=== PATIENT | female | born 1965 | race Caucasian/White ===

== ENCOUNTER → 2018-07-05 09:27 | Outpatient (CLI) | payer MEDICARE, SELFPAY ==
--- NOTE | 2018-07-05 09:33 | RAD_ITS ---
CLINICAL HISTORY: Female, 53 years old. PROCEDURE: Double contrast upper GI. CONSENT: Years SEDATION: No FLUOROSCOPY TIME (if supplied): (1:38) minutes/seconds TECHNIQUE: (All elements of maximal sterile barrier technique followed, including US elements as applicable) Patient swallowed barium without difficulty, no evidence for hiatal hernia, obstruction, there was mild gastroesophageal reflux. The stomach was then filled to its normal contour without mucosal abnormality. The duodenal bulb, sweep and proximal small bowel are within normal limits. RAD/Upper GI Series Only IMPRESSION: Negative upper double contrast upper GI except for mild gastroesophageal : Electronically Signed: Alexander Freitas, at 15:14 EST Tel , Service support ,
== END ==
PROVIDERS: Family Provider Internal Medicine; PCP Internal Medicine; Referring Provider Nurse Practitioner Adult Health; Visit Provider Nurse Practitioner Adult Health
DX: R13.10 Dysphagia, unspecified (principal); K22.4 Dyskinesia of esophagus; K21.0 Gastro-esophageal reflux disease with esophagitis
CPT/HCPCS: 74246

== ENCOUNTER → 2020-05-01 | Outpatient (CLI) | payer MEDICARE, SELFPAY | END | disposition home or self-care (01) | LOC: LABSPEC 15:44 | PROVIDERS: PCP Internal Medicine; Referring Provider Internal Medicine; Visit Provider Internal Medicine | DX: R50.9 Fever, unspecified (principal) | CPT/HCPCS: 87635; C9803; U0003 ==

== ENCOUNTER 2021-11-08 11:25 | Day surgery (SDC) | payer MEDICARE, MEDICAID, SELFPAY ==
[2021-11-08] MEDS: Lactated Ringers 1,000 ML 15 ML IV (11:40)
[2021-11-08 12:06] VITALS: BP 152/72; PULSE 74; RESP 18; TEMP 36.4; O2SAT 94; BMI 33.6
--- NOTE | 2021-11-08 12:30 | IMM_PTH ---
PATIENT: RACHEAL ANN LOC: EN U#:[id number] AGE/SX: 56/F ROOM: RE11/08/[address]: Dr. Nolan Thorpe MD : 1965 BED: DIS: 11/08/2021 SPEC #: [id number] RECD: 11/08/21 14:10 STATUS: BHAVANI REJuve #: [id number] CRISTIN: 11/08/21 12:[address]: Nolan Thorpe DEPT: IMMUNOHISTOCHEMISTRY RECD BY: Edie Sexton ENTERED: 11/08/21 14:10 SP TYPE: IMMUNO OTHR DR: Dr. Bethanie Desai MD Tissues: Gastric mucous membrane Procedures: H Pylori (initial) PHYSICIAN & INSTITUTION [place] [address] SPECIMEN INFORMATION: Tissue Source: Antrum Biopsy Clinical Info: Dysphagia Specimen Number: [id number] CPT code: 07517 METHODOLOGY: Deparaffinized sections of prefer/formalin-fixed tissue or PAP/DQ stained slides are incubated with monoclonal/polyclonal antibodies/oligonucleotide probes. Localization is made via biotin free immunoperoxidase method. Appropriate controls are performed and reacted as expected. Results on target cell population are indicated in the following table: RESULTS: ANTIBODY / CLONE RESULT H Pylori (polyclonal) negative These tests were developed and their performance characteristics determined by [facility]. They may not have been cleared or approved by the U.S. Food and Drug Administration. The FDA has determined that such clearance or approval is not necessary. The above immunohistochemical/dualISH markers are ordered and reviewed by the Pathologist. INTERPRETATION: Antrum biopsy: Negative for Helicobacter pylori organisms. SJ:marleni 11/09/2021
--- NOTE | 2021-11-08 12:30 | EGD_PTH ---
PATIENT: RACHEAL ANN LOC: EN U#:[id number] AGE/SX: 56/F ROOM: RE11/08/[address]: Dr. Nolan Thorpe MD : 1965 BED: DIS: 11/08/2021 SPEC #: [id number] RECD: 11/08/21 13:49 STATUS: BHAVANI REJuve #: [id number] CRISTIN: 11/08/21 12:[address]: Nolan Thorpe DEPT: SURGICAL PATHOLOGY RECD BY: Edie Sexton ENTERED: 11/08/21 14:00 SP TYPE: EGD BIOPSY OTHR DR: Dr. Bethanie Desai MD Tissues: Gastric mucous membrane Procedures: Surgery Specimen Level IV HEADER OPERATION: Colonoscopy, EGD ([facility]), H Pylori Biopsy PRE-OP DIAGNOSIS: Dysphagia, unspecified type, change in bowel habits TISSUE SUBMITTED: Antrum biopsy for H Pylori MICROSCOPIC DIAGNOSIS Antrum biopsy: Mild gastritis. See microscopic description and comment. SJ:marleni 11/09/2021 COMMENT The results of immunohistochemistry for Helicobacter pylori will be reported separately ([id number]). MICROSCOPIC DESCRIPTION Slides are reviewed. The specimen shows fragments of gastric mucosa with chronic inflammatory cell infiltrates in the lamina propria consisting of lymphocytes and plasma cells, consistent with mild chronic gastritis. GROSS DESCRIPTION Received in fixative is one container labeled with the patient's name and designated antrum biopsy. The specimen consists of one irregular fragment of light mancini soft tissue that measures 0.3 x 0.3 x 0.1 cm. The specimen is totally submitted in one cassette. / RONNY:marleni 11/08/2021 TC:5 CPT: 08168
--- NOTE | 2021-11-08 13:02 | PCM.HP.BLA ---
History and Physical Date of Admission: 11/08/21 Mckenzie Haider is a 56 year old female who is scheduled at the request of Self for No chief complaint on file.. My final recommendations will be communicated back to the requesting physician by the way of the shared medical record, fax, or via US Mail ? Was last seen by GI on 09/30/2019 by Rossana Thakur. That note has been reviewed and part as follows: ? Mckenzie Haider a 54 year old female who is?self referred for the evaluation of?altered bowel habits. The patient?has?been seen previously, regarding GERD. The patient?reports?a family?history of colon cancer in that her paternal grandfather had the disease. ? The patient has a history of constipation, GERD, HTN, fibromyalgia, carcinoma in situ of the cervix, hereditary spastic paraplegia, depression and bipolar disorder.? ? Chief?complaint:?The patient reports?that she was having problems, like before, where she is usually constipated. Seems to be doing a little better. Was taking Miralax intermittently, in a larger amount than usual, making stools pasty for 2-4 days, then the constipation would start all over again. We discussed trying a small amount every day and seeing how that worked. ?She'll give that a try. ? Reminds me that her insurance didn't cover the 20mg twice a day. We were able to get the 40mg dose approved. Initially didn't seem to help with the evening reflux. ?Now it seems to help a little. ?I recommended that she move the dose to later in the day - on an empty stomach. ?She will try it about 12:30-1:00 in the afternoon. ?She has the head of the bed elevated ? ? HISTORY OF PRESENT ILLNESS Mckenzie Haider is a 56 year old female with a past medical history GERD, diverticulosis of the colon, constipation hereditary spastic paraplegia, Tobacco use, fibromyalgia, depression, HTN, bipolar. Who presents today for an evaluation of change bowels. Family history of colon cancer paternal grandfather. ? The patient reports change in bowel habits, rectal bleeding or abdominal pain. Having a bowel movement daily alternating from pasty BM or then constipated for 5-6 days. ? Reports Douglas Mason told her to take Miralax double and stool softer - reports she did have a have BM that was huge.Never knew what she should be continuing doing. Discussed with patient she can continue to take the miralax and adjust based on stool consistency ? ? Patient reports break through heartburn, in the past nausea denies epigastric pain. Once in a while willlhave acid brash. ? Patient reports that she was having trouble with swallowing pills. Will have to drink 1/ gallon water to take pills - She seen Jt Ruggiero regarding this issue diagnosed with hereditary spasmodic paralegia - Feels like pills get stuck and some foods like potatoes get stuck- sometimes feels like she is clearing of throat. Recently in the last 2 weeks suddenly feels like she is going to vomit and almost gets chills and body aches with this. She has kept it down reports one time she vomited bile. When she gets this feeling and is able to vomits the symptoms improve. ? Cough - smoke ppd Drinks coffee 1 cup ? The patient was seen by on 01/14/2014?for colonoscopy and upper endoscopy for symptoms of Hematochezia . ?The procedures were performed with Midazolam 6 mg IV, Fentanyl 100 micrograms IV sedation. The procedure report has been reviewed and findings as follows: ? Impression: ?- The entire examined colon is normal on direct and retroflexion views. - Repeat colonoscopy in 10 years for screening purposes. Impression: ?- Erythematous duodenopathy. ? - Gastritis. Biopsied. ? - Mildly severe reflux esophagitis. Biopsied. ? - Hiatus hernia. FINAL DIAGNOSIS 1. Antrum, biopsy (A) - Chronic inactive antral gastritis, see comment. 2. Gastroesophageal junction, biopsy (B) - Active inflamed cardiac-type mucosa, negative for intestinal metaplasia and dysplasia. - Mildly active esophagitis with focal keratinization, see comment. COMMENT 1. An immunohistochemical stain for Helicobacter pylori is negative. 2. These histologic features of likely related to gastroesophageal reflux. A GMS stain is negative for fungal organisms. ? PAST MEDICAL HISTORY PAST MEDICAL HISTORY Diagnosis Date ? Bipolar disorder, unspecified (HCC) ? ? Carcinoma in situ of cervix uteri ? ? DYSPLASIA SCOTTY III - UTERINE CERVIX ? Depression ? ? Diverticulosis of colon (without mention of hemorrhage) ? ? Esophageal reflux ? ? Essential hypertension, benign ? ? Fibromyalgia ? ? GERD (gastroesophageal reflux disease) ? ? Hereditary spastic paraplegia (HCC) ? ? Insertion of IUD 12/23/2009 ? mirena ? Tobacco abuse 07/12/2012 ? Unspecified constipation ? ? PAST SURGICAL HISTORY PAST SURGICAL HISTORY Procedure Laterality Date ? COLONOSCOP W/ OR W/O [facility] SPEC ? 2013 ? Colonoscopy - 10 yr interval ? COLONOSCOP W/ OR W/O [facility] SPEC ? 10/30/2008 ? D&C, DIAG AND/OR THERAPEUTIC ? ? ? INSERTION OF IUD ? 12/23/2009 ? mirena ? PAST SURGICAL HISTORY OF ? 1991 ? laser treatment of cervix by Dr. Esparza ? CURRENT MEDICATIONS Current Outpatient Medications Medication Sig Dispense Refill ? polyethylene glycol 3350 (MIRALAX, GLYCOLAX) 17 gram/dose powder Take 17 g by mouth once daily. 510 g 5 ? ferrous sulfate 325 mg (65 mg iron) tablet Take 1 tablet by mouth daily with breakfast. 30 tablet 1 ? tiZANidine (ZANAFLEX) 2 mg tablet TAKE 2 TABLETS BY MOUTH EVERY MORNING, TAKE 1 TABLET IN THE AFTERNOON AND EVENING AND TAKE 2 TABLETS AT BEDTIME 180 tablet 5 ? baclofen (LIORESAL) 20 mg tablet Take 1 tablet by mouth four times daily. 120 tablet 11 ? fexofenadine (BRODIE ALLERGY) 60 mg tablet Take 1 tablet by mouth once daily. 90 tablet 1 ? fluticasone (FLONASE) 50 mcg/actuation nasal spray Use 2 Sprays in each nostril once daily. Rinse mouth after use. 1 Bottle 11 ? alendronate (FOSAMAX) 70 mg tablet TAKE 1 TABLET BY MOUTH EACH WEEK 4 tablet 5 ? cholecalciferol, Vitamin D3, (VITAMIN D3) 1,250 mcg (50,000 unit) cap capsule Take 1 capsule by mouth one time a week. 4 capsule 5 ? folic acid 1 mg tablet Take 2 tablets by mouth once daily. 56 tablet 5 ? Losartan-hydroCHLOROthiazide 100-12.5 mg per tablet Take 1 tablet by mouth once daily. 30 tablet 5 ? simvastatin (ZOCOR) 20 mg tablet Take 1 tablet by mouth daily at bedtime. 30 tablet 5 ? gabapentin (NEURONTIN) 100 mg capsule Take 2 capsules by mouth twice daily for 180 days. 120 capsule 5 ? omeprazole (PRILOSEC) 40 mg capsule Take 1 capsule by mouth once daily. 30 capsule 11 ? traZODone (DESYREL) 150 mg tablet Take 2 tablets by mouth daily at bedtime. [facility] 0 ? lamoTRIgine (LAMICTAL) 200 mg tablet Take 1 tablet by mouth once daily. Future refills from [facility] 30 tablet 0 ? venlafaxine ER (EFFEXOR XR) 150 mg 24 hr capsule Take 1 capsule by mouth once daily. Future refills from [facility] 30 capsule 0 ? venlafaxine (EFFEXOR) 75 mg tablet Take 1 tablet by mouth once daily. Along with 150 mg pill Future refills from [facility] 30 tablet 0 ? LORazepam (ATIVAN) 0.5 mg tab every 6 hours as needed. ? ? ? No current facility-administered medications for this visit. ? ? ALLERGIES ALLERGIES No Known Allergies ? SOCIAL HISTORY Social History ? Tobacco Use ? Smoking status: Current Some Day Smoker ? ? Packs/day: 1.00 ? ? Types: Cigarettes ? Smokeless tobacco: Never Used Vaping Use ? Vaping Use: Never used Substance Use Topics ? Alcohol use: No ? Drug use: No ? ? FAMILY HISTORY (grandparents, parents, brothers, sisters, aunts, or uncles) Ulcerative Colitis: No Crohn's Disease: No Colon Cancer: Paternal grandfather Colon Polyps: No IBS: No Celiac disease: No ? PHYSICAL EXAMINATION LMP 04/11/2012 No vitals or PE since telemedicine Alert and pleasant, No apparent distress. Easy respirations. Able to speak in complete sentences. Good judgement. Appropriate answers. ? ? IMPRESSION (R13.10) Dysphagia, unspecified type (primary encounter diagnosis) (R19.4) Change in bowel habits ? ? ? PLAN Patient presents today for evaluation of change in stools. Patient reports family history of paternal grandfather diagnosed with colon cancer. Patient's last colonoscopy was 2013 entire colon was normal recommended 10-year colon surveillance at that time. Patient had a EGD at that time chronic inactive GERD with esophagitis. Patient is currently taking omeprazole 40 mg still having breakthrough heartburn and dysphagia symptoms. Recommend colonoscopy and EGD, discussed with patient twilight sedation versus deeper sedation. Patient reports she is very anxious and she does not think that she would do good with a twilight sedation. Recommend EGD/colonoscopy with MAC sedation at [facility]. ? ? Will plan for colonoscopy and EGD ? Plan is to follow up after test(s) and as needed (prn). The patient will be scheduled for an upper endoscopy as well as a colonoscopy. Preparation for the procedures, using GoLytely as the laxative, have been explained in detail. The risks, benefits, anticipated outcomes and possible complications were mentioned, including including failure to complete the endoscopy and perforation. I explained the procedure in understandable terms and the patient was given printed material concerning the planned procedure. The patient had the opportunity to ask questions concerning the planned procedure. The patient freely consents to the planned procedure. ? The patient is instructed to contact PCP for instructions regarding diabetic medication, which may require adjustment during bowel preparation and/or day of procedure. ? The patient is scheduled for a procedure at the [facility] . I have explained that his/her health and safety, as well as that of our staff is important. The risk of exposure to, or potential harm posed by the COVID-19 virus with having a procedure at this time is as minimal as possible. Measures are being taken to minimize any potential risk of infection. I have explained that he/she will see that the staff will be wearing masks and gloves. The patient's temperature will be taken on arrival, they will be asked a series of questions to reassess current wellness, and asked to use hand quality assurance director foam. The bed areas are cleaned and the procedure rooms are thoroughly disinfected between patients. Procedure rooms will be alternated to give the disinfection more than enough time to ensure adequate protection for all involved. ? The patient is encouraged to call with any questions or concerns, or should there be any change in health status between now and the scheduled procedure. ? I have personally interviewed and examined this patient. I have read the information that the nurse documented in this encounter. I spent 30 minutes in the visit, with more than 50% of the total [id number] time of the visit in counseling / coordination of care. ? ? ? Sammie Ferrer APRN.SENIOR COLDFUSION DEVELOPER I have re-examined the patient. There are no clinical changes since date of exam.
--- NOTE | 2021-11-08 13:35 | OP.CCLET_ITS ---
11/08/2021 Bethanie Desai [address] [place] [id number] Re : Upper GI endoscopy procedure for Mckenzie Haider Dear Dr. Desai This procedure was performed on Monday, November 08, 2021. My impressions and recommendations are as follows: Impressions : - Z-line regular, 38 cm from the incisors. No specimens collected. - Small hiatal hernia. - Gastritis. Biopsied. - Normal examined duodenum. No specimens collected. Recommendations : - Patient has a contact number available for emergencies. The signs and symptoms of potential delayed complications were discussed with the patient. Return to normal activities tomorrow. Written discharge instructions were provided to the patient. - Resume previous diet. - Continue present medications. - Await pathology results. - Repeat upper endoscopy PRN for surveillance. - Perform ambulatory esophageal manometry at appointment to be scheduled. My findings are described in the full procedure note, which is enclosed. If I can be of further assistance, please feel free to contact me at Doctor phone number(s): , Work: . Sincerely, MD Nolan Pendleton MD 11/08/2021 1:34:48 PM This report has been signed electronically.
--- NOTE | 2021-11-08 13:35 | OP.EGD_ITS ---
Patient Name: Mckenzie Haider Procedure Date: 11/08/2021 1:06 PM Date of : 1965 Age: 56 Procedure: Upper GI endoscopy Indications: Dysphagia Providers: Nolan Thorpe MD Medicines: See the Anesthesia note for documentation of the administered medications Patient Profile: This is a 56 year old female. Refer to note in patient chart for documentation of history and physical. Complications: No immediate complications. Estimated blood loss: Minimal. Procedure: Pre-Anesthesia Assessment: - Prior to the procedure, a History and Physical was performed, and patient medications and allergies were reviewed. The patient's tolerance of previous anesthesia was also reviewed. The risks and benefits of the procedure and the sedation options and risks were discussed with the patient. All questions were answered, and informed consent was obtained. Prior Anticoagulants: The patient has taken no previous anticoagulant or antiplatelet agents. ASA Grade Assessment: III - A patient with severe systemic disease. After reviewing the risks and benefits, the patient was deemed in satisfactory condition to undergo the procedure. After obtaining informed consent, the endoscope was passed under direct vision. Throughout the procedure, the patient's blood pressure, pulse, and oxygen saturations were monitored continuously. The Endoscope was introduced through the mouth, and advanced to the second part of duodenum. The upper GI endoscopy was accomplished without difficulty. The patient tolerated the procedure well. Scope In: 1:15:28 PM Scope Out: 1:17:54 PM Total Procedure Duration Time 0 hours 2 minutes 26 seconds Findings: The Z-line was regular and was found 38 cm from the incisors. No biopsies or other specimens were collected for this exam. A small hiatal hernia was present. Localized minimal inflammation characterized by erythema was found in the prepyloric region of the stomach. Biopsies were taken with a cold forceps for Helicobacter pylori testing. The examined duodenum was normal. No biopsies or other specimens were collected for this exam. Impression: - Z-line regular, 38 cm from the incisors. No specimens collected. - Small hiatal hernia. - Gastritis. Biopsied. - Normal examined duodenum. No specimens collected. Recommendation: - Patient has a contact number available for emergencies. The signs and symptoms of potential delayed complications were discussed with the patient. Return to normal activities tomorrow. Written discharge instructions were provided to the patient. - Resume previous diet. - Continue present medications. - Await pathology results. - Repeat upper endoscopy PRN for surveillance. - Perform ambulatory esophageal manometry at appointment to be scheduled. Procedure Code(s): --- Professional --- 22568, Esophagogastroduodenoscopy, flexible, transoral; with biopsy, single or multiple Diagnosis Code(s): --- Professional --- K44.9, Diaphragmatic hernia without obstruction or gangrene K29.70, Gastritis, unspecified, without bleeding R13.10, Dysphagia, unspecified CPT copyright 2017 [employer]. All rights reserved. The codes documented in this report are preliminary and upon vehicle operator review may be revised to meet current compliance requirements. MD Nolan Pendleton MD 11/08/2021 1:34:48 PM This report has been signed electronically. Number of Addenda: 0 Note Initiated On: 11/08/2021 1:06 PM
[2021-11-08 13:38] VITALS: BP 146/73; BP 152/72; PULSE 62; RESP 16; TEMP 36.4; O2SAT 95
--- NOTE | 2021-11-08 13:40 | OP.COLON_ITS ---
Patient Name: Mckenzie Haider Procedure Date: 11/08/2021 1:19 PM Date of : 1965 Age: 56 Procedure: Colonoscopy Indications: Change in bowel habits Providers: Nolan Thorpe MD Medicines: See the Anesthesia note for documentation of the administered medications Patient Profile: This is a 56 year old female. Refer to note in patient chart for documentation of history and physical. Last Colonoscopy: 2013. Complications: No immediate complications. Estimated blood loss: None. Procedure: Pre-Anesthesia Assessment: - Prior to the procedure, a History and Physical was performed, and patient medications and allergies were reviewed. The patient's tolerance of previous anesthesia was also reviewed. The risks and benefits of the procedure and the sedation options and risks were discussed with the patient. All questions were answered, and informed consent was obtained. Prior Anticoagulants: The patient has taken no previous anticoagulant or antiplatelet agents. ASA Grade Assessment: III - A patient with severe systemic disease. After reviewing the risks and benefits, the patient was deemed in satisfactory condition to undergo the procedure. After I obtained informed consent, the scope was passed under direct vision. Throughout the procedure, the patient's blood pressure, pulse, and oxygen saturations were monitored continuously. The colonoscope was introduced through the anus with the intention of advancing to the cecum. The scope was advanced to the transverse colon before the procedure was aborted. Medications were given. The colonoscopy was aborted due to the extreme difficulty of the procedure. The colonoscopy was technically difficult and complex due to inadequate bowel prep. The patient tolerated the procedure well. The quality of the bowel preparation was inadequate. Scope In: 1:20:47 PM Scope Withdrawal Time 0 hours 1 minute 6 seconds Scope Out: 1:30:36 PM Total Procedure Duration Time 0 hours 9 minutes 49 seconds Findings: The entire examined colon appeared normal. Copious quantities of semi-liquid semi-solid stool was found in the entire colon, precluding visualization. The exam was otherwise without abnormality. Impression: - The procedure was aborted due to the extreme difficulty of the procedure. - Preparation of the colon was inadequate. - No specimens collected. Recommendation: - Discharge patient to home. - Resume previous diet. - Continue present medications. - Repeat colonoscopy within 3 months because the bowel preparation was poor. - Return to nurse practitioner in 1 week. Pt will need a two day bowel prep Procedure Code(s): --- Professional --- 28323, 53, Colonoscopy, flexible; diagnostic, including collection of specimen(s) by brushing or washing, when performed (separate procedure) Diagnosis Code(s): --- Professional --- Z53.8, Procedure and treatment not carried out for other reasons R19.4, Change in bowel habit CPT copyright 2017 [employer]. All rights reserved. The codes documented in this report are preliminary and upon employee relations advisor review may be revised to meet current compliance requirements. MD Nolan Pendleton MD 11/08/2021 1:39:51 PM This report has been signed electronically. Number of Addenda: 0 Note Initiated On: 11/08/2021 1:19 PM
--- NOTE | 2021-11-08 13:40 | OP.CCLET_ITS ---
11/08/2021 Bethanie Desai [address] [id number] Re : Colonoscopy procedure for Mckenzie Haider Dear Dr. Desai This procedure was performed on Monday, November 08, 2021. My impressions and recommendations are as follows: Impressions : - The procedure was aborted due to the extreme difficulty of the procedure. - Preparation of the colon was inadequate. - No specimens collected. Recommendations : - Discharge patient to home. - Resume previous diet. - Continue present medications. - Repeat colonoscopy within 3 months because the bowel preparation was poor. - Return to nurse practitioner in 1 week. Pt will need a two day bowel prep My findings are described in the full procedure note, which is enclosed. If I can be of further assistance, please feel free to contact me at Doctor phone number(s): , Work: . Sincerely, MD Nolan Pendleton MD 11/08/2021 1:39:51 PM This report has been signed electronically.
[2021-11-08 13:45] VITALS: BP 118/71; BP 152/72; PULSE 67; RESP 16; O2SAT 95
[2021-11-08 13:50] VITALS: BP 134/65; BP 152/72; PULSE 62; RESP 16; O2SAT 97
[2021-11-08 13:54] VITALS: BP 152/72; BP 152/79; PULSE 63; RESP 16; TEMP 36.7; O2SAT 97
== END 2021-11-08 15:29 | disposition home or self-care (01) ==
LOC: EN 11:27 → AC 11:29
PROVIDERS: PCP Internal Medicine; Referring Provider Internal Medicine; Visit Provider Surgery
PROC: 0DJD8ZZ Inspection of Lower Intestinal Tract, Via Natural or Artificial Opening Endoscopic (ICD-10-PCS; CPT 45378; principal; 2021-11-08 12:25)
DX: K29.70 Gastritis, unspecified, without bleeding (principal); G11.4 Hereditary spastic paraplegia; F31.9 Bipolar disorder, unspecified; K44.9 Diaphragmatic hernia without obstruction or gangrene; R13.10 Dysphagia, unspecified; R19.4 Change in bowel habit; I10 Essential (primary) hypertension; E78.00 Pure hypercholesterolemia, unspecified; K21.9 Gastro-esophageal reflux disease without esophagitis; M79.7 Fibromyalgia; F41.9 Anxiety disorder, unspecified; F17.210 Nicotine dependence, cigarettes, uncomplicated; Z53.8 Procedure and treatment not carried out for other reasons; Z79.899 Other long term (current) drug therapy; Z80.0 Family history of malignant neoplasm of digestive organs
CPT/HCPCS: 45378; 43239; 87426; 88305; 88342; J7120; J2405

== ENCOUNTER → 2022-05-13 | Outpatient (CLI) | payer MEDICARE, MEDICAID, SELFPAY ==
--- NOTE | 2022-05-13 13:15 | RAD_ITS ---
EXAM: XR CERVICAL SPINE, 2 OR 3 VIEWS CLINICAL INDICATION: Increasing neck and back pain. TECHNIQUE: Frontal and lateral views of the cervical spine. This report was created using [employer] report AppSpotr technology. COMPARISON: None. FINDINGS: VERTEBRAE: Unremarkable. Preserved vertebral body height. No acute fracture. No spondylolisthesis. Preservation of the normal cervical lordosis. No significant facet arthropathy. DISC SPACES: Moderate disc space narrowing and marginal osteophytes C4-C5 and C5-C6. Prominent uncovertebral joint osteophytes bilaterally C3-C4 through C6-C7. SOFT TISSUES: Unremarkable. No prevertebral soft tissue widening. LUNG APICES: Clear. RAD/Cerv Spine 2 or 3 Views IMPRESSION: 1. Moderate spondylitic changes C4-C5 and C5-C6. 2. Prominent uncovertebral joint osteophytes bilaterally C3-C4 through C6-C7. These may cause neural foraminal narrowing. 3. No acute abnormality identified. Electronically Signed: Manuel Sam MD at 3:23 EDT ,
--- NOTE | 2022-05-13 13:15 | RAD_ITS ---
EXAM: XR LUMBOSACRAL SPINE, 2 OR 3 VIEWS CLINICAL INDICATION: Increasing back and neck pain. TECHNIQUE: Frontal and lateral views of the lumbar spine and sacrum. This report was created using Rain report Embly technology. COMPARISON: None. FINDINGS: VERTEBRAE: Moderate scoliosis of the lumbar spine convex to the left. Diffuse spondylitic changes throughout the lumbar spine. Lumbar facet arthropathy in the lower lumbar spine. Preserved vertebral body height. No fracture. No spondylolisthesis. DISC SPACES: No acute findings. Disc spaces are maintained. GASTROINTESTINAL TRACT: Unremarkable as visualized. Included bowel gas pattern is non-obstructive. RAD/Lumbar Spine 2 or 3 Views IMPRESSION: 1. Moderate scoliosis of the lumbar spine convex to the left. 2. Diffuse spondylitic changes throughout the lumbar spine. 3. Lumbar facet arthropathy in the lower lumbar spine. Electronically Signed: Manuel Sam MD at 3:25 EDT ,
[2022-05-13 14:22] LABS: Amphetamine Urine VISTA NEGATIVE (<1000 ng/mL); Barbiturate Urine VISTA NEGATIVE (< 200 ng/mL); Benzodiazepine Urine VISTA NEGATIVE (< 200 ng/mL); Cocaine Urine VISTA NEGATIVE (< 300 ng/mL); Ecstacy Urine VISTA POSITIVE (< 500 ng/mL); Methadone Urine VISTA NEGATIVE (< 300 ng/mL); PCP Urine VISTA NEGATIVE (< 25 ng/mL); THC Urine VISTA NEGATIVE (< 50 ng/mL); Vista UDS pH Range 7
== END | disposition home or self-care (01) ==
PROVIDERS: PCP Internal Medicine; Referring Provider Anesthesiology Pain Medicine; Visit Provider Anesthesiology Pain Medicine
DX: M50.30 Other cervical disc degeneration, unspecified cervical region (principal); M46.96 Unspecified inflammatory spondylopathy, lumbar region; F11.20 Opioid dependence, uncomplicated; M47.816 Spondylosis without myelopathy or radiculopathy, lumbar region
CPT/HCPCS: 72040; 72100; 80307

== ENCOUNTER → 2022-06-14 | Outpatient (CLI) | payer MEDICARE, MEDICAID, SELFPAY ==
--- NOTE | 2022-06-14 13:19 | MRI_ITS ---
HISTORY: Back pain. TECHNIQUE: Multiplanar and multisequence MR images of the lumbar spine were obtained without intravenous contrast. 177 images. COMPARISON: XR 05/13/2022. FINDINGS: Motion artifact lowers sensitivity of the examination. VERTEBRAE: Vertebral body heights maintained. Degenerative bone marrow endplate changes of T12-L1, L3-4, and L4-5. ALIGNMENT: Mild lumbar levoscoliosis. No significant anterior or posterior subluxation. CONUS: Normal morphology and position of the conus medullaris at L1-2. INTERVERTEBRAL DISCS: T12-L1: Moderate disc bulge with facet arthropathy and superimposed left paracentral disc extrusion with inferior migration resulting in minimal narrowing of the thecal sac and moderate left foraminal narrowing with abutment of the T12 nerve root. L1-2: Moderate left paracentral disc protrusion abutting the left L2 foramen with facet arthropathy resulting in mild central canal stenosis and moderate left foraminal narrowing. L2-3: Left paracentral disc extrusion with superior migration and facet arthropathy resulting in minimal narrowing of the thecal sac and mild bilateral foraminal narrowing. L3-4: Moderate posterior disc bulge osteophyte complex with facet arthropathy resulting in mild central canal stenosis with mild-moderate right foraminal narrowing. L4-5: Mild posterior disc bulge osteophyte complex with facet arthropathy resulting in mild central canal stenosis, mild left, and mild-moderate right foraminal narrowing. L5-S1: No significant posterior disc protrusion, central canal stenosis, or foraminal narrowing. SOFT TISSUES: Mild posterior subcutaneous edema. MRI/Spine Lumbar (Routine) IMPRESSION: Motion artifact. Multilevel degenerative disc disease as above. Electronically Signed: Nancy Armenta MD at 14:59 EST ,
== END | disposition home or self-care (01) ==
LOC: MRI 13:09
PROVIDERS: PCP Internal Medicine; Referring Provider Anesthesiology Pain Medicine; Visit Provider Anesthesiology Pain Medicine
DX: M54.16 Radiculopathy, lumbar region (principal)
CPT/HCPCS: 72148

== ENCOUNTER → 2022-06-20 | Outpatient (CLI) | payer MEDICARE, MEDICAID, SELFPAY ==
[2022-06-20 18:57] LABS: Amphetamine Urine VISTA NEGATIVE (<1000 ng/mL); Barbiturate Urine VISTA NEGATIVE (< 200 ng/mL); Benzodiazepine Urine VISTA NEGATIVE (< 200 ng/mL); Cocaine Urine VISTA NEGATIVE (< 300 ng/mL); Ecstacy Urine VISTA POSITIVE (< 500 ng/mL); Methadone Urine VISTA NEGATIVE (< 300 ng/mL); PCP Urine VISTA NEGATIVE (< 25 ng/mL); THC Urine VISTA NEGATIVE (< 50 ng/mL); Vista UDS pH Range 5
== END | disposition home or self-care (01) ==
LOC: LAB 17:17
PROVIDERS: PCP Internal Medicine; Visit Provider Anesthesiology Pain Medicine
DX: F11.20 Opioid dependence, uncomplicated (principal)
CPT/HCPCS: 80307

== ENCOUNTER 2022-08-23 14:56 | Emergency (ER) | payer MEDICARE, MEDICAID, SELFPAY ==
[2022-08-23 14:58] VITALS: BP 125/80; PULSE 72; RESP 16; TEMP 36.3; O2SAT 99; BMI 36.6
--- NOTE | 2022-08-23 15:52 | VDLE_ITS ---
Reason For Study: Swelling RIGHT LEFT GSV is normal. CFV is compressible, spontaneous, phasic, CFV is compressible, spontaneous, phasic, competent, and demonstrates normal competent and demonstrates normal augmentation. augmentation. FV is compressible, spontaneous, phasic, competent and demonstrates normal augmentation. POP V is compressible, spontaneous, phasic, competent and demonstrates normal augmentation. T/P Trunk is compressible. PTV is compressible. RT PerV is compressible. Procedure This is a venous duplex using B-mode, color flow and spectral Doppler. Exam performed in department. A preliminary report was called and/or faxed to ED. VL/Venous Duplex US, Unilateral Interpretation Summary There is no evidence of right lower extremity deep vein thrombosis. Right great saphenous vein appears patent and compressible segmentally. Normal flow patterns left common f emoral vein Ordering Physician: Pernell Miller Referring Physician: Bethanie Desai Performed By: Opal Norman RVT
--- NOTE | 2022-08-23 15:53 | EDS_ITS ---
HPI History of Present Illness HPI Narrative: Patient notes with pain in her right foot and ankle that began 1-1/2 weeks ago after a fall. Patient states she has a history of spastic paraplegia and falls frequently. Patient states her pain has been constant since this time. Patient admits to some numbness and tingling over the dorsum of her right foot. Patient states that the swelling has gotten worse. Patient states she has chronic swelling of both lower extremities. Patient states she has had outpatient ultrasounds to assess for blood clots. Patient states these have always been negative. Patient states the swelling and pain is better in certain positions. Patient denies any fevers or chills. Patient admits to some redness over the toes of both feet. Chief Complaint: Lower Extremity Injury Informant: patient Occured/Mechanism Mechanism/Context: Yes fall Onset/Context/Timing Onset: Weeks (1.5) Context: Sudden Onset Timing: Continuous Worsened by: Nothing Relieved by: Certain positions Associated Symptoms Associated Symptoms: Positive for Parasthesia [facility] Medical History Anemia Anxiety Arthritis Bipolar disorder Chronic cough Constipation Fibromyalgia Gastric reflux Hereditary spastic paraplegia High cholesterol History of edema History of hiatal hernia History of pain when walking Hypertension Leg cramps Migraine headache Post-menopausal Restless legs Shortness of breath on exertion Smoker Walker as ambulation aid Wears glasses Home Medications Venlafaxine Xr [Effexor Xr] 75 mg PO DAILY 06/21/16 [History Last Taken Unknown] baclofen 20 mg tablet 20 mg PO 4X/DAY 06/21/16 [History Last Taken Unknown] folic acid 1 mg tablet 2 mg PO DAILY 06/21/16 [History Last Taken Unknown] gabapentin 100 mg capsule 300 mg PO BID 06/21/16 [History Last Taken Unknown] lamotrigine 200 mg tablet (Lamictal) 200 mg PO QHS 06/21/16 [History Last Taken Unknown] omeprazole 20 mg capsule,delayed release 40 mg PO QHS 06/21/16 [History Last Taken Unknown] simvastatin 40 mg tablet (Zocor) 20 mg PO DAILY 06/21/16 [History Last Taken Unknown] tizanidine 2 mg tablet 2 mg PO 4X/DAY 06/21/16 [History Last Taken Unknown] trazodone 150 mg tablet 300 mg PO BID 06/21/16 [History Last Taken Unknown] venlafaxine 150 mg capsule,extended release 24 hr (Effexor XR) 150 mg PO DAILY 06/21/16 [History Last Taken Unknown] alendronate 70 mg tablet 70 mg PO .WEEKLY 08/26/21 [History Last Taken Unknown] ergocalciferol (vitamin D2) 25,000 unit capsule 1 unit PO .WEEKLY 08/26/21 [History Last Taken Unknown] ferrous sulfate 325 mg (65 mg iron) tablet 325 mg PO DAILY 08/26/21 [History Last Taken Unknown] fexofenadine 60 mg tablet 60 mg PO DAILY 08/26/21 [History Last Taken Unknown] losartan 100 mg tablet 100 mg PO DAILY 11/04/21 [History Last Taken 11/08/21] meloxicam 7.5 mg tablet 7.5 mg PO DAILY 11/04/21 [History Last Taken Unknown] Allergy/AdvReac Type Severity Reaction Status Date / Time No Known Allergies Allergy Verified 08/23/22 15:00 Surgical History Hx of colonoscopy Social History Smoking Status: Current every day smoker tobacco type: cigarettes ROS ROS ED Constitutional Constitutional ED: Denies chills or fever(s) Eyes Eyes: Denies blurry vision or change in vision ENT ENT ED: Denies rhinorrhea or sore throat Cardiovascular Cardiovascular: Denies chest pain or palpitations Respiratory/Chest Respiratory/Chest: Denies cough or dyspnea Gastrointestinal Gastrointestinal: Denies nausea or vomiting Genitourinary Genitourinary ED: Denies dysuria or hematuria Musculoskeletal Musculoskeletal: Reports neck pain; Denies back pain Integumentary Denies abscess or rash Neurologic Neurologic: Denies headache(s) or weakness Allergic/Immunologic Allergic/Immunologic ED: Denies mouth swelling or urticaria EXAM Physical Exam Const Vital Signs: 08/23/22 14:58 Temperature 97.4 F L Temperature Source Temporal Pulse Rate 72 Respiratory Rate 16 Blood Pressure 125/80 H Blood Pressure Mean 95 Pulse Ox 99 Oxygen Delivery Method Room Air Positive well nourished, well developed and obese General Appearance ED: well developed and NAD Nutritional Appearance: obese HEENT Reports moist mucous membranes Neck full ROM and supple Extremity Extremity Narrative: There is edema and tenderness over the dorsum of the right foot. There is no ecchymosis. There is no bony crepitance or step-off. There is no obvious deformity. There is also tenderness and edema over the right calf. There is no ecchymosis or erythema of the calf. There are no palpable cords. There is no tenderness over the left calf. There is no edema of the left calf. Neuro oriented x3, CN's II-XII intact bilaterally, moves all extremities and no sensory deficits noted Sensorium / Orientation: alert Psych mental status grossly normal MDM MDM MDM Narrative Medical decision making narrative: Differential diagnosis includes fracture of the right foot or ankle, fracture of the right tibia and fibula, sprain of the right foot or ankle. DVT of the right lower extremity. Venous duplex of the right lower extremity was obtained to assess for DVT. X-rays of the right foot and right tibia-fibula be obtained to assess for fracture. Radiography Diagnostic Testing: Clinical Impression(s) from Imaging Studies Venous Doppler Study 08/23/22 15:52 Interpretation Summary There is no evidence of right lower extremity deep vein thrombosis. Right great saphenous vein appears patent and compressible segmentally. Normal flow patterns left common femoral vein Ordering Physician: Pernell Miller Referring Physician: Bethanie Desai Performed By: Opal Norman Latrice Tibia/Fibula X-Ray 08/23/22 15:56 IMPRESSION: There is non-specific soft tissue swelling of the ankle. Electronically Signed: Ramón Jordan MD at 16:53 EST Reading Location ID and State: [facility] / [place] , Service support , Foot X-Ray 08/23/22 16:31 IMPRESSION: There is non-specific soft tissue swelling of the foot. Electronically Signed: Ramón Jordan MD at 16:52 EST , Venous Doppler of the of the right lower extremity was reviewed. There is no evidence of DVT. X-rays of the right foot were obtained. There are 3 views. On my independent interpretation, there is no acute fracture or dislocation. There is some mild soft tissue swelling. Radiologist also interpreted the x-rays and agrees. X-rays of the right tibia and fibula were obtained. There are 2 views. On my independent interpretation, there is no acute fracture or dislocation. There is some mild soft tissue swelling of the ankle area. Radiologist also interpreted the x-rays and agrees. Treatment and Re-Evaluation Narrative: Patient was advised of her findings. Patient was instructed to ice and elevate the right lower extremity. Patient was instructed to take Tylenol or ibuprofen as needed for pain. Patient was instructed to continue her chronic pain medications as previously prescribed by her pain management physician. I do not feel the patient requires prescription analgesics at this time. Patient was instructed to follow-up with her primary care physician in 5 to 7 days. Patient understood and was agreeable with the plan. All questions were answered. Discharge Plan Triage Chief Complaint: Lower Extremity Injury ED Provider: Pernell Miller Dx/Rx/DC Orders Clinical Impression: Right foot sprain, Strain of right calf muscle Instructions: ED Foot Sprain, ED Muscle Strain, Extremity Prescriptions: No Action lamotrigine [Lamictal] 200 MG tablet 200 mg PO QHS tizanidine 2 MG tablet 2 mg PO 4X/DAY venlafaxine [Effexor XR] 150 MG capsule 150 mg PO DAILY simvastatin [Zocor] 40 MG tablet 20 mg PO DAILY baclofen 20 MG tablet 20 mg PO 4X/DAY trazodone 150 MG tablet 300 mg PO BID omeprazole 20 MG capsule 40 mg PO QHS folic acid 1 MG tablet 2 mg PO DAILY Label Comments: TAKE 2 TABLET BY MOUTH ONCE DAILY gabapentin 100 MG capsule 300 mg PO BID Label Comments: TAKE 2 CAPSULES TWICE A DAY Venlafaxine Xr [Effexor Xr] 75 MG capsule 75 mg PO DAILY fexofenadine 60 mg tablet 60 mg PO DAILY alendronate 70 mg tablet 70 mg PO .WEEKLY ferrous sulfate 325 mg (65 mg iron) tablet 325 mg PO DAILY Vitamin D2 25,000 unit Capsule 1 unit PO .WEEKLY meloxicam [Mobic] 7.5 mg Tablet 7.5 mg PO DAILY losartan 100 mg Tablet 100 mg PO DAILY Primary Care Provider: Bethanie Desai Referrals: Bethanie Desai MD [Primary Care Provider] - 5-7 Days Disposition Disposition: Home, Self Care
--- NOTE | 2022-08-23 15:56 | RAD_ITS ---
EXAM: XR RIGHT TIBIA AND FIBULA, 2 VIEWS CLINICAL INDICATION: Injury/Pain TECHNIQUE: Frontal and lateral views of the right tibia and fibula. This report was created using App[employer] report generation technology. COMPARISON: None. FINDINGS: BONES/JOINTS: Unremarkable. No acute fracture. No subluxation. Normal alignment. Preservation of the joint space. No sclerotic or destructive changes observed. SOFT TISSUES: There is non-specific soft tissue swelling of the ankle. No radiopaque foreign body. RAD/Tibia & Fibula 2 Views IMPRESSION: There is non-specific soft tissue swelling of the ankle. Electronically Signed: Ramón Jordan MD at 16:53 EST ,
--- NOTE | 2022-08-23 16:31 | RAD_ITS ---
STUDY: XR Foot Min 3 Views CLINICAL: Female, 57 years old. Injury/Pain TECHNIQUE: XR Foot Min 3 ViewsRIGHT COMPARISON: None. FINDINGS: There is a plantar calcaneal spur. Normal visualized subtalar, talonavicular, calcaneocuboid, tarsal and tarsometatarsal articulations. Normal metatarsi. Normal metatarsophalangeal joint of the great toe. Normal tibial and fibular sesamoid bones. Normal interphalangeal joint of the great toe. Normal phalanges of the great toe. Normal second through fifth metatarsophalangeal joints. Normal interphalangeal joints and phalanges of the lesser toes. There is non-specific soft tissue swelling of the foot. RAD/Foot min 3 Views IMPRESSION: There is non-specific soft tissue swelling of the foot. Electronically Signed: Ramón Jordan MD at 16:52 EST ,
== END 2022-08-23 17:44 | disposition home or self-care (01) ==
PROVIDERS: Emergency Provider Emergency Medicine; PCP Internal Medicine; Visit Provider Emergency Medicine
DX: S93.601A Unspecified sprain of right foot, initial encounter (principal); S86.912A Strain of unspecified muscle(s) and tendon(s) at lower leg level, left leg, initial encounter; F17.210 Nicotine dependence, cigarettes, uncomplicated; E66.9 Obesity, unspecified; W19.XXXA Unspecified fall, initial encounter
CPT/HCPCS: 73590; 73630; 93971; 99282

== ENCOUNTER 2022-12-08 13:30 | Outpatient (RCR) | payer MEDICARE, MEDICAID, SELFPAY ==
--- NOTE | 2022-09-21 17:03 | HP.PTEVAL_ITS ---
Patient's Visit Information RACHEAL ANN is a 57 year old F referred to Physical Therapy by Dr. Shraddha Chin MD with a diagnosis of BACK PAIN AND LEG PAIN. Date of Evaluation: 09/21/22 Physical Therapist: Yaw Enrique, PT, Cert MDT, OCS - Visit Plan Frequency: 2x /Week Duration: 4 Weeks Plan: PATIENT HAS HEREDITY SPASTIC PARAPLEGIA ( HPS). PT INTERVTIONS POSTURAL EX'S ,DLS ,LE STRENGTHENING ESPECIALLY HIP AND FUNCTIONAL STRENGTHENING - Subjective This 57 y/o female presents to physical therapy with back pain leg pain. Patient has low back and leg pain ~ 2 years. Noticed low back pain initially. 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 See DR Bradshaw management recommended PT. Patient MD want possible epidural injections. Patient had MRI showed extrusion L2-3,protrusion /bulging. Meds: MELICAM/baclofen/gabapentin for condition. Aggravating factors walking/standing ,bending and unable lift . Alleviating rest and medication. Patient denies paresthesia/tingling. Coughing/sneezing-. Bowel/bladder - Patient pain can affects sleeping. Patient has no h/o trauma ,but has fallen over the years .last fall ~ 1 month ago and had ER visit. Patient walks with rollator. Patient lives alone apartment no stairs. Walk-in shower with grab bars with seat. Patient pain affects QOL and function. Patient has no PT in past for back. SOCAIL: single ,lives alone. VOCATION: DISABLITY - Pain Bilateral Back Pain Intensity (Out of 10): 5 Pain Intensity Range: 10 - Objective POSTURE: mild forward posture ,hips/knee flexed. PALAPTION: tender LS. NEURO: c/o paresthesia/tingling legs, reflexes Achilles/patella hyperreflexia ,light touch intact. GAIT: reciprocal pattern ataxia legs slow saritha forward posture with rollator. MMT: ( peak force) quads 11.2,hamstrinsg 10.3 ,hip flexion 0 right ,hip flexion 3.4 ,ankle right 0 ,left 3.2. LUMBAR ROM: flexion mod loss ,extension severe lose ,side glides mod loss. FLEXABLITY: hamstrings mod tight - Special Tests L/S Slump test left side: Negative L/S Slump test right side: Negative L/S Left Straight Leg Raise: Negative L/S Right Straight Leg Raise: Negative - Balance/Special Test Scores Oswestry Low Back Score: 29 - Goals Goal 1:: I with HEP for back. Goal Time Frame: 4-6 Weeks Goal 2:: Patient to demonstrate 40% improvement with decrease pain and improved function. Goal Time Frame: 4-6 Weeks Goal 3:: Patient increase strength of hips peak force by 5 to improve function and gait Goal Time Frame: 4-6 Weeks Goal 4:: Patient to improve ADLS and functional activities by with walking with less pain Goal Time Frame: 4-6 Weeks Goal 5:: Patient to increase back oswestry score by 5 points to improve QOL and function. Goal Time Frame: 4-6 Weeks - Rehabilitation Potential Physical Therapy Diagnosis: This patient has back and leg pain MRI showed extrusion L2-3 ,as well as comorbities with heredity spastic paraplegia with pain with positioning ,walking and standing ,decrease ROM lumbar and weakness BLE especially hips benefit from skilled PT Rehabilitation Potential: Good - Anticipated Interventions Patient/Client Instruction: Educate patient on: Condition, Plan of Care For the Purpose of:: To decrease pain, To increase ROM, To improve muscle performance and motor function, To improve ability to perform ADL's, To increase tolerance to activity/condition/position, To improve ability of physical actions for home/community/work/leisure, To improve health of tissue, To decrease soft tissue restriction, To increase flexibility/ROM, To improve endurance, To improve balance, To prevent re-injury Therapeutic Exercise to Include: Strength training, Endurance training, Balance training, Postural training, Flexibilty training, Dynamic Lumbar Stabilization For the Purpose of:: To decrease pain, To increase ROM, To improve muscle performance and motor function, To improve ability to perform ADL's, To increase tolerance to activity/condition/position, To improve ability of physical actions for home/community/work/leisure, To improve health of tissue, To decrease soft tissue restriction, To increase flexibility/ROM Thank you for the opportunity to evaluate your patient. For Medicare and Medicare HMO plans, please review the plan of care and approve it. It will need to be FAXED BACK to us at [phone] for Medicare purposes. For Medicare only, by signing this I certify the plan of care. Please let me know if there are questions or concerns regarding this plan of care. Physician Signature : Date:
--- NOTE | 2022-12-08 13:59 | HP.PTDCSUM ---
It has been my pleasure to treat RACHEAL ANN referred by Dr. Shraddha Chin MD, with the diagnosis of BACK PAIN AND LEG PAIN for a total of 10 visit(s). Discharge Date: Please see the following information for a summary of their discharge status. Subjective: Pt reports having 4/10 pain in R leg and R side. Pt. reports still having issues. Pt. is HEP compliant. pt. arrives with rollator. Bilateral Back Pain Intensity (Out of 10): 4 % Improvement: 45 Objective/Function: ROM: PT. continues to have fairly limited ROM, max loss back ext, mod loss flexion, SB bilat and rotation bilat. MMT: RLE: DF 3#, PF 1#; knee: ext 13#, flexion 11#; hip: flexion 0#. LLE: ankle DF 15#, PF 28#; knee: ext 29#, flexion 24#; hip: 10#. GAIT: Pt. ambulates with rollator with very methodical pattern. Pt. has crouched pattern most likely due to RLE weakness. She is emmy with walking. Overall she is still having back pain. She has an HEP for core stability and is I with these exercises. Pt. is to continue with them as tolerated and focus on increase in walking program. Goal 1:: I with HEP for back. Goal 2:: Patient to demonstrate 40% improvement with decrease pain and improved function. Goal Progress: Goal Met Goal 3:: Patient increase strength of hips peak force by 5 to improve function and gait Goal Progress: Not Progressing Goal 4:: Patient to improve ADLS and functional activities by with walking with less pain Goal Progress: Progressing Goal 5:: Patient to increase back oswestry score by 5 points to improve QOL and function. Goal Progress: Goal Met Plan: Pt. to be DC to HEP at this point in time. She is to continue with progressive walking program and follow up with physician to determine best course of action to assist with reducing her back pain. If there are questions or concerns regarding this patient's physical therapy, please feel free to call me at [phone]. Thank you for the referral of this patient. Sincerely, Cong Kolb Sipos, DPT Balance/Gait/Functional tests - Balance/Special Test Scores Oswestry Low Back Score: 23
== END 2022-12-08 19:00 | disposition home or self-care (01) ==
LOC: PT 13:30
PROVIDERS: PCP Internal Medicine; Referring Provider Anesthesiology Pain Medicine; Visit Provider Anesthesiology Pain Medicine
DX: M79.606 Pain in leg, unspecified; M54.9 Dorsalgia, unspecified
CPT/HCPCS: 97110; 97162; 97164; 97530

== ENCOUNTER → 2023-01-16 | Outpatient (CLI) | payer MEDICARE, MEDICAID, SELFPAY ==
--- NOTE | 2023-01-16 12:47 | MRI_ITS ---
EXAM: MR CERVICAL SPINE WITHOUT INTRAVENOUS CONTRAST CLINICAL INDICATION: RADICULOPATHY, NECK PAIN, NKI TECHNIQUE: Multiplanar and multisequence MR images of the cervical spine without intravenous contrast were performed. COMPARISON: Plain film cervical spine 05/13/2022 FINDINGS: VERTEBRAE: Unremarkable. Normal vertebral bodies and posterior elements. Normal alignment. Normal craniocervical junction and cervicothoracic junction. No spondylolisthesis. There is preservation of the normal cervical lordosis. SPINAL CORD: Unremarkable in signal and morphology. SOFT TISSUES: Unremarkable. No prevertebral soft tissue swelling. LYMPH NODES: Unremarkable. There is no cervical adenopathy. DISCS/SPINAL CANAL/NEURAL FORAMINA: C2-C3: Mild broad-based disc osteophyte complex as well as uncovertebral joint hypertrophy causing moderate left and mild right neural foraminal narrowing. No significant central canal narrowing. C3-C4: Mild broad-based disc osteophyte complex and uncovertebral joint hypertrophy causing mild central canal narrowing and mild mass effect on the cervical cord without cord edema, mild bilateral neural foraminal narrowing. C4-C5: Uncovertebral joint hypertrophy on the right causing mild right neural foraminal narrowing. Normal spinal canal. C5-C6: Moderate central/left paracentral disc osteophyte complex causing mild central canal stenosis and mild mass effect on the ventral aspect of the cervical cord on the left without cord edema. Uncovertebral joint hypertrophy on the left causing mild left neural foraminal narrowing. C6-C7: Moderate broad-based disc osteophyte complex and uncovertebral joint hypertrophy causing mild central canal stenosis, mild mass effect on the ventral aspect of the cervical cord without cord edema, and moderate bilateral neural foraminal narrowing. C7-T1: Unremarkable. Normal disc height and morphology. Normal spinal canal. Normal neuroforamina. MRI/Spine Cervical (Routine) IMPRESSION: Multilevel degenerative changes of the cervical spine as detailed above, with mild mass effect on the cervical cord at C3/4, C5/6, and C6/7 without cord edema. Electronically Signed: Ramón Wei MD at 2:55 EDT ,
== END | disposition home or self-care (01) ==
LOC: MRI 12:42
PROVIDERS: PCP Internal Medicine; Referring Provider Anesthesiology Pain Medicine; Visit Provider Anesthesiology Pain Medicine
DX: M54.12 Radiculopathy, cervical region (principal)
CPT/HCPCS: 72141

== ENCOUNTER → 2023-03-06 | Outpatient (CLI) | payer MEDICARE, MEDICAID, SELFPAY ==
--- NOTE | 2023-03-06 16:00 | NEURO ---
NCS and/or EMG Patient Report Ordering Doctor: Shraddha Chin DATE OF SERVICE: 03/06/23 Findings: Nerve conduction studies were performed in the right and left upper extremities. The right median motor study recording the abductor pollicis brevis showed a borderline amplitude, prolonged distal latency and mildly slowed conduction velocity. The right ulnar motor study recording the abductor digiti minimi showed a normal amplitude, normal distal latency and normal conduction velocity. No conduction block or focal slowing was present across the elbow. The right median sensory response recording digit two showed a reduced amplitude, prolonged latency and markedly slowed conduction velocity. The right ulnar sensory response recording digit five showed a normal amplitude, latency and conduction velocity. The right radial sensory response recording over the extensor snuff box showed a normal amplitude, latency and conduction velocity. The left median motor study recording the abductor pollicis brevis showed a borderline amplitude, prolonged distal latency and normal conduction velocity. The left ulnar motor study recording the abductor digiti minimi showed a normal amplitude, normal distal latency and normal conduction velocity. No conduction block or focal slowing was present across the elbow. The left median sensory response recording digit two showed a reduced amplitude, prolonged latency and markedly slowed conduction velocity. The left ulnar sensory response recording digit five showed a normal amplitude, latency and conduction velocity. The left radial sensory response recording over the extensor snuff box showed a normal amplitude, latency and conduction velocity. Needle EMG of the right upper extremity muscles was performed. No denervation was seen in any muscle. The abductor pollicis brevis revealed large amplitude, long duration motor units with slightly reduced recruitment. All other motor unit morphology, activation and recruitment patterns were normal. Needle EMG of the left abductor pollicis brevis was performed. No active denervation was present. Motor units were mildly polyphasic but otherwise unremarkable. Impression: This is an abnormal study. 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 The pathophysiology is predominantly demyelination, though there is evidence of secondary axonal loss. These findings are compatible with the clinical diagnosis of carpal tunnel syndrome. In addition, there is no electrophysiologic evidence of a superimposed cervical radiculopathy or brachial plexopathy in the right upper extremity. Jason Sharp D.O. Multi Select Codes Neurology Neurology Interp Codes: 26963-44 Musc tst done w/nerv tst lopez (interp) (59), 38651-15 Musc test done w/n test comp (interp) and 65442-42 Nr cnd test 9-10 studies (interp)
== END | disposition home or self-care (01) ==
LOC: PSN 14:41
PROVIDERS: PCP Internal Medicine; Referring Provider Anesthesiology Pain Medicine; Visit Provider Anesthesiology Pain Medicine
DX: M54.2 Cervicalgia (principal)
CPT/HCPCS: 95885; 95886; 95911

== ENCOUNTER 2023-04-13 23:57 | Observation (INO) | payer MEDICARE, MEDICAID, SELFPAY ==
[2023-04-13 23:58] VITALS: BP 164/80; PULSE 66; RESP 19; TEMP 36.5; O2SAT 94; BMI 32.5
[2023-04-14] VITALS (10 sets, daily range): BP systolic 138–186; BP diastolic 84–111; PULSE 63–75; RESP 16–19; TEMP 36.3–36.6; O2SAT 90–97; BMI 29.4
--- NOTE | 2023-04-14 00:17 | EDS_ITS ---
HPI History of Present Illness Chief Complaint: Numb/Ting Narrative Narrative: Patient presents after a fall with some numbing tingling and weakness of her right lower extremity. Patient has a history of hereditary spastic paraplegia. She uses a rollator walker all the time. She does live alone. She is also gets pain on her legs. She sees Dr. Chin for this. At about 3 PM this afternoon she had an injection on the anterior portion of her thigh. It sounds like this was near the anterior superior iliac spine and lateral femoral cutaneous nerve by her description. She states immediately after the injection she was numb on the anterior lateral portion of her thigh between the hip and the knee. She states she is still numb and she feels like her leg is weaker than it normally is. Of note her legs are always having problems with weakness due to her chronic illness and sometimes she has trouble with sensation. Because of this weakness, she fell this evening. She does not feel as stable as she normally does. She fell backwards. She did hit her buttock and then hit her head but no loss of consciousness. She is not hurting anywhere. She does not hurt in her back or hip or her head. She is not on blood thinners. She called EMS because she was not able to get up . They recommend coming in to avoid further falls. [facility] Medical History (Updated 04/14/23 @ 02:[address] Sera Merino MD) Anemia Anxiety Arthritis Bipolar disorder Chronic cough Constipation Fibromyalgia Gastric reflux Hereditary spastic paraplegia High cholesterol History of edema History of hiatal hernia History of pain when walking Hypertension Leg cramps Migraine headache Post-menopausal Restless legs Shortness of breath on exertion Smoker Walker as ambulation aid Wears glasses Home Medications baclofen 20 mg tablet 20 mg PO 4X/DAY 06/21/16 [History Last Taken Unknown] folic acid 1 mg tablet 2 mg PO DAILY 06/21/16 [History Last Taken Unknown] gabapentin 100 mg capsule 300 mg PO BID 06/21/16 [History Last Taken Unknown] lamotrigine 200 mg tablet (Lamictal) 200 mg PO QHS 06/21/16 [History Last Taken Unknown] omeprazole 20 mg capsule,delayed release 40 mg PO QHS 06/21/16 [History Last Taken Unknown] simvastatin 40 mg tablet (Zocor) 20 mg PO DAILY 06/21/16 [History Last Taken Unknown] tizanidine 2 mg tablet 2 mg PO 4X/DAY 06/21/16 [History Last Taken Unknown] trazodone 150 mg tablet 300 mg PO BID 06/21/16 [History Last Taken Unknown] alendronate 70 mg tablet 70 mg PO .WEEKLY 08/26/21 [History Last Taken Unknown] fexofenadine 60 mg tablet 60 mg PO DAILY 08/26/21 [History Last Taken Unknown] losartan 100 mg tablet 100 mg PO DAILY 11/04/21 [History Last Taken 11/08/21] meloxicam 7.5 mg tablet 7.5 mg PO DAILY 11/04/21 [History Last Taken Unknown] duloxetine 60 mg capsule,delayed release 60 mg PO DAILY 04/14/23 [History Last Taken Unknown] Allergy/AdvReac Type Severity Reaction Status Date / Time No Known Allergies Allergy Verified 04/13/23 23:57 Family History (Updated 04/14/23 @ 01:[address] Sera Merino MD) Grandfather Colon cancer Father Heart disease Hypertension CAD (coronary artery disease) Myocardial infarction HLD (hyperlipidemia) Mother HLD (hyperlipidemia) Surgical History (Updated 04/14/23 @ 01:[address] Sera Merino MD) Hx of colonoscopy S/P D&C (status post dilation and curettage) Social History (Updated 04/14/23 @ 01:[address] Sera Merino MD) household members: none Smoking Status: Current every day smoker tobacco type: cigarettes Smoking packs per day: 1 Smoking cigarettes per day: 20.0 alcohol intake: never substance use type: does not use ROS ROS ED Constitutional Constitutional ED: Denies chills or fever(s) Eyes Eyes: Denies change in vision Cardiovascular Cardiovascular: Denies chest pain or palpitations Respiratory/Chest Respiratory/Chest: Denies cough or dyspnea Gastrointestinal Gastrointestinal: Denies nausea or vomiting Genitourinary Genitourinary ED: Denies dysuria Musculoskeletal Musculoskeletal: Denies back pain or neck pain Integumentary Denies Abrasions or rash Neurologic Neurologic: Reports other Details: See history of present illness. ; Denies headache(s) Hematologic/Lymphatic Hematologic/Lymphatic: Denies easy bleeding or easy bruising Allergic/Immunologic Allergic/Immunologic ED: Denies urticaria EXAM Physical Exam Narrative Exam Narrative: General: Patient is awake alert no acute distress. She is a good informant for details. HEENT: I do not see any sign of contusion or abrasion in her hair. There is no tenderness or swelling. No sign of injury on her head. Neck shows no tenderness or pain with range of motion Lungs are clear bilaterally and saturations are normal at 94 to 96% on room air showing no hypoxia. Heart is regular. Abdomen is soft and nontender No pain in her thoracic or lumbar spine. Extremities do show chronic edema which is not new. Sensation is intact. Plantar and dorsiflexion is intact. She has a little trouble lifting her right leg up off the bed as well as the left but it is because it causes pain. This is the pain she has been having and this is not new. I do not see shortening or rotation though. Neuro: She does have some decrease sensation in the anterior lateral thigh. But sensation distal to that is intact and equal. Const Vital Signs: 04/13/23 23:58 Temperature 97.7 F L Temperature Source Temporal Pulse Rate 66 Respiratory Rate 19 H Blood Pressure 164/80 H Blood Pressure Mean 108 Pulse Ox 94 MDM MDM MDM Narrative Medical decision making narrative: This patient had injection today. This was likely a combination of a local anesthetic and a steroid. Even bupivacaine should have worn off now 9 hours after her injection. But when combined with the steroid, numbness can last sometimes a day and a half. I will do an x-ray of the hip since she has had anesthesia in the area. If they had numbed portions of the femoral nerve she may have hip fracture without feeling it. I did do not think this is present but I think we need to verify this. We will also do some blood work to make sure there is no significant anemia or electrolyte abnormalities that would be contributing to weakness or numbness. Patient may end up needing to come in the hospital for safety until she has her sensation and strength back. My independent interpretation of her three-view x-ray of the right hip shows no fracture or dislocation and this is consistent with the final reading. No graft patient CBC is overall normal. Patient's electrolytes are normal. Patient's glucose is minimally up at 110. Patient is rechecked. She is having moderate spasticity. We will give her her baclofen which she normally takes. But she is not comfortable going home. This is a unique patient that has significant difficulty walking on baseline. With this numbness it is gotten worse and she is not safe to go home. For this reason she will be brought in the hospital. She may need physical therapy and strengthening. Hopefully as the anesthesia from her injection wears off her symptoms will improve. Lab Data Attestation: I reviewed the patient's lab results. Labs: Laboratory Results - last 24 hr 04/14/23 00:29 WBC 5.5 RBC 4.35 Hgb 13.3 Hct 39.8 MCV 91.5 MCH 30.6 MCHC 33.4 RDW Std Deviation 44.7 H RDW Coeff of Kristi 13.3 Plt Count 154 MPV 11.4 Immature Gran % (Auto) 0.200 Neut % (Auto) 64.8 Lymph % (Auto) 24.4 Tyrrell % (Auto) 6.9 Eos % (Auto) 2.2 Baso % (Auto) 1.5 H Absolute Neuts (auto) 3.6 Absolute Lymphs (auto) 1.34 Nucleated RBC % 0 Sodium 137 Potassium 3.8 Chloride 106 Carbon Dioxide 28.0 Anion Gap 3 L BUN 16 Creatinine 0.78 Estim Creat Clear Calc 58.60 Est GFR (MDRD) Af Amer 97 Est GFR (MDRD) Non-Af 80 BUN/Creatinine Ratio 20.5 H Glucose 110 H Calcium 9.3 Radiography Diagnostic Testing: Clinical Impression(s) from Imaging Studies Hip/Pelvis X-Ray 04/14/23 00:50 IMPRESSION: No evidence of a right hip fracture or dislocation. Electronically Signed: Jose Santamaria DO at 1:37 EDT Reading Location ID and State: [facility] / [place] Tel , Service support , Management Discussion w/another healthcare provider: Hospitalist Discharge Plan Triage Chief Complaint: Numb/Ting ED Provider: Gus Clark Dx/Rx/DC Orders Clinical Impression: Injection site reaction, Spastic paraplegia, Inability to walk Prescriptions: No Action lamotrigine [Lamictal] 200 MG tablet 200 mg PO QHS tizanidine 2 MG tablet 2 mg PO 4X/DAY simvastatin [Zocor] 40 MG tablet 20 mg PO DAILY baclofen 20 MG tablet 20 mg PO 4X/DAY trazodone 150 MG tablet 300 mg PO BID omeprazole 20 MG capsule 40 mg PO QHS folic acid 1 MG tablet 2 mg PO DAILY Patient Comments: TAKE 2 TABLET BY MOUTH ONCE DAILY gabapentin 100 MG capsule 300 mg PO BID Patient Comments: TAKE 2 CAPSULES TWICE A DAY fexofenadine 60 mg tablet 60 mg PO DAILY alendronate 70 mg tablet 70 mg PO .WEEKLY meloxicam [Mobic] 7.5 mg Tablet 7.5 mg PO DAILY losartan 100 mg Tablet 100 mg PO DAILY duloxetine 60 mg capsule,delayed release(DR/EC) 60 mg PO DAILY Primary Care Provider: Bethanie Desia Referrals: Bethanie Desai MD [Primary Care Provider] - Disposition Disposition: Acute Care Hospital [facility]
[2023-04-14 00:35] LABS: Absolute Lymphocyte Count 1.34 X10^3/uL (0.83-4.51); Absolute Neutrophil Count 3.6 X10^3/uL (2.0-7.7); Basophil# 0.08 X10^3/uL; Basophil% 1.5 % (0-1); Eosinophil# 0.12 X10^3/uL; Eosinophils% 2.2 % (0-5); Hematocrit 39.8 % (37-47); Hemoglobin 13.3 g/dL (12.0-15.0); Lymphocyte # 1.34 X10^3/ul (0.83-4.51); Lymphocyte % 24.4 % (19-41); Mean Corp Hgb Conc 33.4 g/dL (32-36); Mean Corpuscular Hgb 30.6 pg (27.0-32.0); Mean Corpuscular Volume 91.5 fL (81-99); Mean Platelet Vol. 11.4 fl (6.2-12.0); Monocyte# 0.38 X10^3/uL; Monocyte% 6.9 % (0-10); NRBC Flagged by Analyzer 0 % (0-5); Neutrophil # 3.56 X10^3/uL (2.7-7.7); Neutrophil % 64.8 % (47-70); Platelet Count 154 K/mm3 (150-450); RBC Distribution Width CV 13.3 % (11.6-14.6); RBC Distribution Width SD 44.7 fl (35.1-43.9); Red Blood Count 4.35 M/mm3 (4.2-5.4); White Blood Count 5.5 K/mm3 (4.4-11.0)
[2023-04-14 00:50] LABS: Anion Gap 3 (5-15); BUN 16 mg/dL (7-18); BUN/Creat Ratio 20.5 RATIO (10-20); Calcium,Total 9.3 mg/dL (8.5-10.1); Chloride 106 mmol/L (98-107); Creatinine, Serum 0.78 mg/dL (0.55-1.02); EST Glomerular Filtration Rate 80 mL/min (>60); Est Glom Filt Rate - Afr Amer 97 mL/min (>60); Glucose 110 mg/dL (74-106); Potassium 3.8 mmol/L (3.5-5.1); Sodium Level 137 mmol/L (136-145)
--- NOTE | 2023-04-14 00:50 | RAD_ITS ---
INDICATION: Trauma EXAMINATION/TECHNIQUE: X-RAY - RIGHT XR Hip Unilateral with Pelvis when performed; 2-3 Views COMPARISON: 06/21/2016. FINDINGS: SOFT TISSUES: Unremarkable. BONES/JOINTS: No fracture or dislocation. No significant degenerative changes. No erosive changes. Large amount of stool seen in the visualized abdomen and pelvis. RAD/HIP, UNI W/ Pelvis 2-3 Views IMPRESSION: No evidence of a right hip fracture or dislocation. Electronically Signed: Jose Santamaria DO at 1:37 EDT ,
--- NOTE | 2023-04-14 01:58 | HP.PCM.HOS_ITS ---
HPI - General General Date of Admission: 04/14/23 Date of Service: 04/14/23 Chief Complaint: Numbness R anterior thigh, increased weakness after recent injection, fall. HPI Narrative BThe patient is a 58 y/o F w/ PMHx: Chronic anemia, Hereditary spastic paraplegia, HTN, HLD, Allergic rhinitis, Anxiety and Depression/Bipolar disorder, Tobacco use, RLS, Chronic migraines, GERD who presents to the [facility] ED on 04/14/23 with history of injection to her anterior portion of her thigh per Dr. Romero at approximately 3 PM on day prior to presentation with immediate onset of numbness to the region specifically the anterolateral portion of the th igh between the hip and the knee which has been persistent with increased weakness to that extremity following normal using a rollator walker at home and often does have issues with weakness to the extremity and paresthesias at baseline unfortunately falling with inability to get up prompting EMS call with no loss of consciousness but she did hit her head as she fell backwards prompting eventual ED evaluation. In the ED patient still with ongoing paresthesias to the right anterior thigh. She notes over the last 2 weeks she has not been as active with her physical therapy and stretching because of the discomfort to her right hip which is why she had this recent injection. She still has some difficulty lifting up her legs because of the discomfort. She also currently is having significant spasticity and needs a dose of her baclofen. Work-up in the ED included T97.7, heart rate 66, BP 164/80, respiratory rate 19, and a 4% on room air, CBC with WBC 5.5, hemoglobin 13.3, platelet 154 without marked shift, BMP with glucose 110 otherwise unremarkable, plain film of the hip and pelvis with no acute findings. [facility] Medical History Anemia Anxiety Arthritis Bipolar disorder Chronic cough Constipation Fibromyalgia Gastric reflux Hereditary spastic paraplegia High cholesterol History of edema History of hiatal hernia History of pain when walking Hypertension Leg cramps Migraine headache Post-menopausal Restless legs Shortness of breath on exertion Smoker Walker as ambulation aid Wears glasses Home Medications baclofen 20 mg tablet 20 mg PO 4X/DAY 06/21/16 [History Last Taken Unknown] folic acid 1 mg tablet 2 mg PO DAILY 06/21/16 [History Last Taken Unknown] gabapentin 100 mg capsule 300 mg PO BID 06/21/16 [History Last Taken Unknown] lamotrigine 200 mg tablet (Lamictal) 200 mg PO QHS 06/21/16 [History Last Taken Unknown] omeprazole 20 mg capsule,delayed release 40 mg PO QHS 06/21/16 [History Last Taken Unknown] simvastatin 40 mg tablet (Zocor) 20 mg PO DAILY 06/21/16 [History Last Taken Unknown] tizanidine 2 mg tablet 2 mg PO 4X/DAY 06/21/16 [History Last Taken Unknown] trazodone 150 mg tablet 300 mg PO BID 06/21/16 [History Last Taken Unknown] alendronate 70 mg tablet 70 mg PO .WEEKLY 08/26/21 [History Last Taken Unknown] fexofenadine 60 mg tablet 60 mg PO DAILY 08/26/21 [History Last Taken Unknown] losartan 100 mg tablet 100 mg PO DAILY 11/04/21 [History Last Taken 11/08/21] meloxicam 7.5 mg tablet 7.5 mg PO DAILY 11/04/21 [History Last Taken Unknown] duloxetine 60 mg capsule,delayed release 60 mg PO DAILY 04/14/23 [History Last Taken Unknown] Allergy/AdvReac Type Severity Reaction Status Date / Time No Known Allergies Allergy Verified 04/13/23 23:57 Family History (Updated 04/14/23 @ 01:[address] Sera Merino MD) Grandfather Colon cancer Father Heart disease Hypertension CAD (coronary artery disease) Myocardial infarction HLD (hyperlipidemia) Mother HLD (hyperlipidemia) Surgical History (Updated 04/14/23 @ 01:[address] Sera Merino MD) Hx of colonoscopy S/P D&C (status post dilation and curettage) Social History (Updated 04/14/23 @ 01:[address] Sera Merino MD) household members: none Smoking Status: Current every day smoker tobacco type: cigarettes Smoking packs per day: 1 Smoking cigarettes per day: 20.0 alcohol intake: never substance use type: does not use ROS ROS Narrative Admission Review of Systems: CONSTITUTIONAL: No weight loss, fever, chills, + weakness or fatigue. HEENT: Eyes: No visual loss, blurred vision, double vision or yellow sclerae. Ears, Nose, Throat: No hearing loss, sneezing, congestion, runny nose or sore throat. SKIN: No rash or itching, lesions, wounds. CARDIOVASCULAR: No chest pain, chest pressure or chest discomfort, palpitations, edema, orthopnea, syncopal events. RESPIRATORY: No shortness of breath, cough or sputum, wheezing, hemoptysis. GASTROINTESTINAL: + Chronic constipation. No anorexia, nausea, vomiting or diarrhea, abdominal pain, melena, BRBPR. GENITOURINARY: No dysuria, frequency, urgency or retention. NEUROLOGICAL: + Chronic migraines, acute on chronic focal RLE weakness, R anterior thigh paresthesias, chronic spasticity. No dizziness, syncope, paralysis, ataxia, change in bowel or bladder control, seizure. MUSCULOSKELETAL: + muscle, back pain, joint pain or stiffness. HEMATOLOGIC: + anemia, No bleeding or bruising. LYMPHATICS: No enlarged nodes. No history of splenectomy. PSYCHIATRIC: + history of depression or anxiety. ENDOCRINOLOGIC: No reports of sweating, cold or heat intolerance. No polyuria or polydipsia. ALLERGIES: + history of rhinitis. Vital Signs Vital Signs Vital Signs: 04/13/23 23:58 Temperature 97.7 F L Temperature Source Temporal Pulse Rate 66 Respiratory Rate 19 H Blood Pressure 164/80 H Blood Pressure Mean 108 Pulse Ox 94 Weight Weight: 172 lb Body Mass Index (BMI) 32.5 Physical Exam Narrative Physical Examination: General: Awake, alert, oriented x 3 and cooperative, seated upright in the ED bed, uncomfortable appearing but having current spasticity and discomfort associated. Skin: Normal color, normal turgor, no icterus, no cyanosis except for notable bilateral lower extremity venous stasis skin changes. HEENT: AT/NC, EOMI, PERRLA, mildly dry MM, no carotid bruits or JVD noted. Lungs: CTA bilaterally, moderate effort, mild decrease BL bases, no rales, ronchi or wheezing. Heart: Regular rate and rhythm; no gallop, rub audible. Abdomen: Soft, obese, NTTP, ND, normal BS, no HSM. Extremities: No cyanosis, no clubbing, bilateral lower extremity ankle to mid dewitt edema which she reports is chronic, see skin. Neurological: Patient awake, alert, oriented as noted, cognitive function intact; pupils equally reactive to light and accommodation, cranial nerves grossly normal, moving all 4 extremities except ability with attempted movements primarily secondary to pain in the lumbar spine and current spasticity, patient does have chronic weakness and debility underlying, still ongoing right anterior thigh numbness to palpation Psychiatric: Affect appears fatigued, mildly uncomfortable with current spasticity, no acute evidence of depressive or anxiety feelings but does have underlying history. Results Lab / Micro Data 04/14/23 00:29 04/14/23 00:29 Labs: Laboratory Results - last 24 hr 04/14/23 00:29: WBC 5.5, RBC 4.35, Hgb 13.3, Hct 39.8, MCV 91.5, MCH 30.6, MCHC 33.4, RDW Std Deviation 44.7 H, RDW Coeff of Kristi 13.3, Plt Count 154, MPV 11.4, Immature Gran % (Auto) 0.200, Neut % (Auto) 64.8, Lymph % (Auto) 24.4, [place] % (A uto) 6.9, Eos % (Auto) 2.2, Baso % (Auto) 1.5 H, Absolute Neuts (auto) 3.6, A bsolute Lymphs (auto) 1.34, Nucleated RBC % 0, Sodium 137, Potassium 3.8, Chloride 106, Carbon Dioxide 28.0, Anion Gap 3 L, BUN 16, Creatinine 0.78, Estim Creat Clear Calc 58.60, Est GFR (MDRD) Af Amer 97, Est GFR (MDRD) Non-Af 80, BUN/Creatinine Ratio 20.5 H, Glucose 110 H, Calcium 9.3 Radiology Impression Hip/Pelvis X-Ray 04/14/23 00:50 IMPRESSION: No evidence of a right hip fracture or dislocation. Electronically Signed: Jose Santamaria DO at 1:37 EDT , Assessment & Plan Assessment/Plan (1) Adult failure to thrive: PLAN: Plan The patient is a 58 y/o F w/ PMHx: Chronic anemia, Hereditary spastic paraplegia, HTN, HLD, Allergic rhinitis, Anxiety and Depression/Bipolar disorder, Tobacco use, RLS, Chronic migraines, GERD who presents to the [facility] ED on 04/14/23 with history of injection to her anterior portion of her thigh per Dr. Romero at approximately 3 PM on day prior to presentation with immediate onset of numbness to the region specifically the anterolateral portion of the thigh between the hip and the knee which has been persistent with increased weakness to that extremity following normal using a rollator walker at home and often does have issues with weakness to the extremity and paresthesias at baseline unfortunately falling with inability to get up prompting EMS call with no loss of consciousness but she did hit her head as she fell backwards prompting eventual ED evaluation. #1. Adult failure to thrive with debility, mechanical fall following recent injection with numbness to the anterior lateral portion of the thigh compounded by #2: Given patient lives alone with fall with recent injections with paresthesias worsening her underlying chronic issue #2 we will admit to medical surgical floor to be cautious, maintain on fall precautions, no obvious concerning findings on lab upon presentation, likely this will take some time for sensation to fully return, PT/OT/case management consulted for discharge planning. #2. Chronic spastic hereditary paraplegia: Significantly complicates patient presentation as she has underlying baseline paresthesias and weaknesses in her extremities already, normal using a walker, living alone and unfortunately with acute presentation fell as noted, we will continue patient home baclofen, gabapentin, tizanidine home regimen, will maintain on fall precautions, PT/OT/case management consulted for discharge planning. #3. Chronic normocytic anemia: Admission hemoglobin 13.3, MCV 91.5, baseline hemoglobin primarily 12 range, appears stable, not on any supplementation aside folic acid per review of list. #4. Hypertension: Continue home regimen including losartan, PRN hydralazine. #5. Hyperlipidemia: We will continue patient on statin therapy. #6. Anxiety and depression/bipolar disorder: We will continue patient home duloxetine, trazodone and lamotrigine regimen. #7. Allergic rhinitis: We will continue patient home chronic fexofenadine hydrochloride. #8. Restless leg syndrome: Per patient current regimen list she utilizes nightly high-dose trazodone as well as tizanidine and baclofen as well as gabapentin. Not on any Mirapex or similar regimen. #9. Tobacco Abuse: Encouraged cessation, inpatient consultation per RT, NR if desired. #10. Chronic migraine headaches: We will continue patient home chronic gabapentin regimen, not on any other preventative type medications, may have as needed agents if necessary. #11. GERD: We will continue patient on PPI. #12. DVT prophylaxis: Lovenox. #13. CODE status: Patient does not have healthcare power of commercial attorney or living will set up but notes that if she could not make medical decisions she would want her son Rafal Haider to make her decisions for her if this was necessary. Discussed CODE status at length including difference between FULL code, DNR-CCA and DNR-CC status. Following discussions about the differences in these status, requested Full Code status. Advanced Care Planning Face to Face Time: 16 minutes. Charges/Coding Visit Charges Inpatient E&M: 58451 Init Hosp L2 Procedures Hospitalists Procedures: 32244 Advncd Care Plan 30 Min
[2023-04-14] MEDS: Baclofen 10 MG Tablet PO (02:41)
[2023-04-14] MEDS: Gabapentin 300 MG Capsule PO ×3 (03:56→21:40)
[2023-04-14] MEDS: tiZANidine HCl 2 MG Tablet PO ×5 (03:56→21:39)
[2023-04-14 06:17] LABS: Absolute Lymphocyte Count 1.65 X10^3/uL (0.83-4.51); Absolute Neutrophil Count 4.4 X10^3/uL (2.0-7.7); Basophil# 0.06 X10^3/uL; Basophil% 0.9 % (0-1); Eosinophil# 0.14 X10^3/uL; Eosinophils% 2.1 % (0-5); Hematocrit 40.4 % (37-47); Hemoglobin 13.8 g/dL (12.0-15.0); Lymphocyte # 1.65 X10^3/ul (0.83-4.51); Lymphocyte % 24.6 % (19-41); Mean Corp Hgb Conc 34.2 g/dL (32-36); Mean Corpuscular Hgb 31.4 pg (27.0-32.0); Mean Corpuscular Volume 91.8 fL (81-99); Monocyte# 0.47 X10^3/uL; NRBC Flagged by Analyzer 0 % (0-5); Neutrophil # 4.37 X10^3/uL (2.7-7.7); Platelet Count 156 K/mm3 (150-450); RBC Distribution Width CV 13.5 % (11.6-14.6); RBC Distribution Width SD 45.3 fl (35.1-43.9); White Blood Count 6.7 K/mm3 (4.4-11.0)
[2023-04-14 07:06] LABS: ALB/GLOB Ratio 1.1 RATIO (0.9-2.4); AST(SGOT) 16 U/L (15-37); Alanine Aminotransfer ALT/SGPT 16 U/L (13-56); Albumin, Serum 3.6 g/dL (3.2-5.0); Alkaline Phosphatase 68 U/L (45-117); Anion Gap 3 (5-15); BUN 13 mg/dL (7-18); BUN/Creat Ratio 18.2 RATIO (10-20); Calcium,Total 9.6 mg/dL (8.5-10.1); Chloride 110 mmol/L (98-107); Creatinine, Serum 0.71 mg/dL (0.55-1.02); EST Glomerular Filtration Rate 89 mL/min (>60); Est Glom Filt Rate - Afr Amer 108 mL/min (>60); Estimated Creatinine Clearance 64.38 ml/min; Globulin 3.3 g/dL (2.2-4.2); Glucose 96 mg/dL (74-106); Potassium 3.5 mmol/L (3.5-5.1); Protein, Total 6.9 g/dL (6.4-8.2); Sodium Level 141 mmol/L (136-145)
[2023-04-14] MEDS: Loratadine 10 MG Tablet PO (09:06)
[2023-04-14] MEDS: Losartan Potassium 100 MG Tablet PO (09:06)
[2023-04-14] MEDS: Folic Acid 1 MG Tablet 2 MG PO (09:06)
[2023-04-14] MEDS: Enoxaparin 40 MG/0.4 ML Syringe SC (09:08)
[2023-04-14] MEDS: Baclofen 10 MG Tablet 20 MG PO ×4 (09:08→21:39)
[2023-04-14] MEDS: Meloxicam 7.5 MG Tablet PO (09:16)
[2023-04-14] MEDS: DULoxetine Hcl 60 MG Capsule PO (12:10)
--- NOTE | 2023-04-14 14:12 | PN_ITS ---
Subjective Subjective Patient seen and examined. She had no active complaints. She denied any fever, chills, cough, chest pain, palpitations, dizziness, nausea, vomiting or any other symptoms. Review of systems is otherwise negative. Objective Data Objective Data Vital Signs: Vital Signs Temp Pulse Resp BP Pulse Ox O2 Del Method 97.3 F L 75 16 138/85 H 95 Room Air 04/14/23 11:03 04/14/23 11:03 04/14/23 11:03 04/14/23 11:03 04/14/23 11:03 04/14/23 11:03 Oxygen Delivery Method Room Air Weight: 158 lb 4.67 oz Body Mass Index (BMI) 29.4 Intake & Output: Intake and Output for Last 24 Hours 04/12/23 04/13/23 04/14/23 23:59 23:59 23:59 Intake Total 240 / 240 Output Total 400 / 400 Balance -160 / -160 Lab / Micro Data 04/14/23 04:50 04/14/23 04:50 Labs: Laboratory Results - last 24 hr 04/14/23 00:29: WBC 5.5, RBC 4.35, Hgb 13.3, Hct 39.8, MCV 91.5, MCH 30.6, MCHC 33.4, RDW Std Deviation 44.7 H, RDW Coeff of Kristi 13.3, Plt Count 154, MPV 11.4, Immature Gran % (Auto) 0.200, Neut % (Auto) 64.8, Lymph % (Auto) 24.4, Mccormick % (Auto) 6.9, Eos % (Auto) 2.2, Baso % (Auto) 1.5 H, Absolute Neuts (auto) 3.6, Absolute Lymphs (auto) 1.34, Nucleated RBC % 0, Sodium 137, Potassium 3.8, Chloride 106, Carbon Dioxide 28.0, Anion Gap 3 L, BUN 16, Creatinine 0.78, Estim Creat Clear Calc 58.60, Est GFR (MDRD) Af Amer 97, Est GFR (MDRD) Non-Af 80, BUN/Creatinine Ratio 20.5 H, Glucose 110 H, Calcium 9.3 04/14/23 04:50: WBC 6.7, RBC 4.40, Hgb 13.8, Hct 40.4, MCV 91.8, MCH 31.4, MCHC 34.2, RDW Std Deviation 45.3 H, RDW Coeff of Kristi 13.5, Plt Count 156, MPV 12.0, Immature Gran % (Auto) 0.400, Neut % (Auto) 65.0, Lymph % (Auto) 24.6, Mccormick % (Auto) 7.0, Eos % (Auto) 2.1, Baso % (Auto) 0.9, Absolute Neuts (auto) 4.4, Absolute Lymphs (auto) 1.65, Nucleated RBC % 0, Sodium 141, Potassium 3.5, Chlo ride 110 H, Carbon Dioxide 28.0, Anion Gap 3 L, BUN 13, Creatinine 0.71, Estim Creat Clear Calc 64.38, Est GFR (MDRD) Af Amer 108, Est GFR (MDRD) Non-Af 89, BUN/Creatinine Ratio 18.2, Glucose 96, Calcium 9.6, Total Bilirubin 0.40, AST 16, ALT 16, Alkaline Phosphatase 68, Total Protein 6.9, Albumin 3.6, Globulin 3.3, Albumin/Globulin Ratio 1.1 Radiography Diagnostic Testing: Radiology Impression Hip/Pelvis X-Ray 04/14/23 00:50 IMPRESSION: No evidence of a right hip fracture or dislocation. Electronically Signed: Jose Santamaria DO at 1:37 EDT , Physical Exam Const alert, oriented x3 and no apparent distress General Appearance: cooperative HEENT normocephalic, head/scalp atraumatic, moist oral mucous membranes and oropharynx normal Eyes PERRL and EOMs intact bilaterally Neck no lymphadenopathy and supple Lymph Lymphatic: no lymphadenopathy noted and no lymphedema noted Resp normal respiratory effort, normal air movement and clear to auscultation bilaterally Cardio regular rate, regular rhythm, S1 normal heart sound, S2 normal heart sound and no murmurs GI normal to inspection, nondistended, normoactive bowel sounds, soft to palpation, non-tender and non-distended Extremity normal capillary refill, no clubbing, cyanosis or edema and no calf tenderness Skin General Skin Exam: no breakdown Neuro CN's II-XII intact bilaterally, no focal motor deficits, no sensory deficits noted and deep tendon reflexes 2+ bilaterally Motor Exam: general weakness Psych thought process normal Mood & Affect: anxious Assessment & Plan Assessment/Plan (1) Adult failure to thrive: PLAN: Plan #Debility with failure to thrive * patient went for a pain shot in her right leg, and said subsequently started having numbness nad weakness in her RUE, resulting in mechanical falls * PT/OT on board. * fall precautions. * #Chronic spastic hereditary paraplegia * uses a walker at home. * on baclofen, gabapentin and tizanidine. * PT/OT on board. Fall precautions * #Hypertension: on losartan. IV hydralazine prn #Hyperlipidemia: on statin #Anxiety, depression and bipolar disorder * on duloxetine, trazodone and lamotrigine * #History of migraines: On gabapentin. #GERD: On PPI #Nicotine dependence: Counseled to quit. Nicotine patch as needed. DVT prophylaxis; lovenox # Charges/Coding Visit Charges Inpatient E&M: 37442 Subs Hosp L2
--- NOTE | 2023-04-14 14:15 | CASEMGMT ---
Addendum entered by Emily Monroy 04/14/23 18:13: Order for HHC: PT/OT placed. Pt's top 2 choices for HHC were: [facility] and [facility]. Referrals placed to both. [facility] does not have any openings until Th, and [facility] unable to accept. Pt made aware. Next choices are [facility], [facility], [facility], and [facility]. [facility] responded via [facility] and they are unable to accept. No response received from the other 3 via Careport. Calls placed to [facility], [facility], and [facility]. No answer. Pt made aware no [facility] agencies have accepted her at this time and that RN CM can check again re: responses in the morning. She states if no one able to accept her, then she would be okay with going to OP therapy @ [facility], as she was going there recently (just finished in December/January). She states [facility] can transport her there. Dr Gupta made aware no [facility] agency's have accepted pt and she is agreeable to OP therapy. Script prepared and placed on pt's chart for her to sign tomorrow and to be provided to pt. Original Note: RN?CM?SPRAY FOAM INSTALLER?CM?to room to meet with patient for initial transition planning/care coordination?assessment.?RN?CM?introduced self and role at [facility].? Pt voices understanding and consents to?assessment?at this time.? Pt sitting up in chair in room in no distress at this time.? Pt is A/O at this time and answers all questions appropriately.?? Care providers, pharmacy, and demographics verified/updated at this time. PCP: Dr Desai Specialists: Dr Angel gatica Preferred Pharmacy: [facility] Retail Insurance: [facility] Prescription Benefit:?Yes Living Will/HPOA:? Pt does not currently have LW/HCPOA and declines info at this time.? Pt made aware that she can contact as an out-pt and make appt in the future if she decides she would like to talk with someone about this or would like to utilize [facility] social work for advanced directive completion.??? LNOK: Son, Rafal Haider. Friend, Raymond Living Arrangements: Lives alone in ground-floor apt w/no steps to enter. Indep w/ADL's and manages her own medications. She has a CM through [facility], Opal Solis and aides through [facility] that come MWF, from 03-10, 03-21, and 03-10, respectively. Pt receives [employer] home delivered meals. Transportation:?Pt does not drive. Friends, family, or [place] for tranportation to appts. DME: ?States has the following DME:?shower chair, pulse ox, rollator, medical alert, and tiny W/C that she hasn't used in about 6 yrs. ?Pt states no need for further DME at this time.? HHC/SNF:No hx of either. Pt states she feels safe to return home and would like HHC. Pt provided w/list of HHC agencies that was provided by Homa, material planner, to review and is aware to pick top 3 preferences. Therapy has worked w/pt and they state they feel pt is safe to return home alone and recommend HHC or OP therapy. Pt wishes to return home and states has no concerns with going home at time of discharge.? CM?to follow for any further discharge planning/needs.? Pt voices no further concerns/needs at this time.? Advised pt to ask for?CM?if any further questions/concerns/needs arise.? Voices understanding. PLAN:??Home w/HHC. Noah BALBUENAN?RN?CM
--- NOTE | 2023-04-14 14:35 | CASEMGMT ---
Discharge Planning A list of HH?providers including quality and resource use data and consistent with the patient's preferred geographic region, medical needs, and insurance network was created in CarePort Guide.? This list was provided to the RN PREM. Homa Irby, Discharge Planning Asst.
--- NOTE | 2023-04-14 15:04 | CASEMGMT ---
Discharge Planning Referral sent to [facility] and [facility] via [facility]Port. Homa Irby, Discharge Planning Asst.
--- NOTE | 2023-04-14 16:47 | CASEMGMT ---
Met with patient to complete CALLAWAY form. CALLAWAY form explained to patient who voiced understanding and signed form. Original form placed in pt?s chart and copy provided to patient. Homa Irby, Discharge Planning Asst.
[2023-04-14] MEDS: Acetaminophen 325 MG Tablet 650 MG PO (17:51)
[2023-04-14] MEDS: traZODone 100 MG Tablet 300 MG PO (21:39)
[2023-04-14] MEDS: lamoTRIgine 100 MG Tablet 200 MG PO (21:40)
[2023-04-14] MEDS: Pantoprazole Sodium 40 MG Tablet PO (21:40)
[2023-04-14] MEDS: Atorvastatin Calcium 10 MG Tablet PO (21:40)
[2023-04-14] MEDS: Arthritis Pain Compound 60 CLICK TUBE TOPICAL (21:42)
[2023-04-14] MEDS: hydrALAZINE 20 MG/ML Vial 10 MG IV (21:55)
[2023-04-14] MEDS: 0.9% Saline Lock 10 ML Syringe IV (21:55)
[2023-04-15 03:49] VITALS: BMI 28.8
[2023-04-15 04:00] VITALS: BP 167/82; PULSE 70; RESP 18; TEMP 36.6; O2SAT 96
[2023-04-15 06:58] VITALS: O2SAT 94
[2023-04-15 07:17] LABS: Absolute Lymphocyte Count 1.64 X10^3/uL (0.83-4.51); Absolute Neutrophil Count 4.4 X10^3/uL (2.0-7.7); Basophil# 0.06 X10^3/uL; Basophil% 0.9 % (0-1); Eosinophil# 0.11 X10^3/uL; Eosinophils% 1.6 % (0-5); Hemoglobin 14.7 g/dL (12.0-15.0); Lymphocyte # 1.64 X10^3/ul (0.83-4.51); Lymphocyte % 24.2 % (19-41); Mean Corp Hgb Conc 33.4 g/dL (32-36); Mean Corpuscular Hgb 30.7 pg (27.0-32.0); Mean Corpuscular Volume 91.9 fL (81-99); Mean Platelet Vol. 11.9 fl (6.2-12.0); Monocyte# 0.57 X10^3/uL; Monocyte% 8.4 % (0-10); NRBC Flagged by Analyzer 0 % (0-5); Neutrophil # 4.39 X10^3/uL (2.7-7.7); Neutrophil % 64.6 % (47-70); Platelet Count 169 K/mm3 (150-450); RBC Distribution Width CV 13.5 % (11.6-14.6); RBC Distribution Width SD 45.6 fl (35.1-43.9); Red Blood Count 4.79 M/mm3 (4.2-5.4); White Blood Count 6.8 K/mm3 (4.4-11.0)
[2023-04-15 07:52] LABS: Anion Gap 4 (5-15); BUN 12 mg/dL (7-18); BUN/Creat Ratio 15.8 RATIO (10-20); Calcium,Total 10.2 mg/dL (8.5-10.1); Chloride 108 mmol/L (98-107); Creatinine, Serum 0.76 mg/dL (0.55-1.02); EST Glomerular Filtration Rate 83 mL/min (>60); Est Glom Filt Rate - Afr Amer 100 mL/min (>60); Estimated Creatinine Clearance 60.14 ml/min; Glucose 99 mg/dL (74-106); Potassium 3.8 mmol/L (3.5-5.1); Sodium Level 140 mmol/L (136-145)
[2023-04-15 09:03] VITALS: BP 162/69; PULSE 65; RESP 16; TEMP 36.6; O2SAT 97
[2023-04-15] MEDS: Folic Acid 1 MG Tablet 2 MG PO (09:19)
[2023-04-15] MEDS: DULoxetine Hcl 60 MG Capsule PO (09:21)
[2023-04-15] MEDS: Losartan Potassium 100 MG Tablet PO (09:21)
[2023-04-15] MEDS: Loratadine 10 MG Tablet PO (09:21)
[2023-04-15] MEDS: Baclofen 10 MG Tablet 20 MG PO (09:22)
[2023-04-15] MEDS: Meloxicam 7.5 MG Tablet PO (09:23)
[2023-04-15] MEDS: tiZANidine HCl 2 MG Tablet PO (09:24)
[2023-04-15] MEDS: Montelukast 10 MG Tablet PO (09:33)
[2023-04-15] MEDS: Gabapentin 300 MG Capsule PO (09:33)
--- NOTE | 2023-04-15 09:45 | CASEMGMT ---
REYES AMARO NOTE: REYES AMARO checked Careport and no further [facility] agencies have responded that are able to accept pt for HHC. REYES AMARO to room and she was made aware. She states she feels safe to discharge home and would like to do OP therapy. REYES AMARO informed her a script for OP therapy will be provided prior to discharge and she can take it to any OP location of choice. She denies having other discharge planning needs or concerns. RNTalisha, aware script to be signed to Dr Gupta and provided to pt prior to discharge. Therapy also to work w/pt prior to discharge and Talisha aware. Noah BALBUENAN REYES AMARO
--- NOTE | 2023-04-15 10:41 | DS.PCM_ITS ---
Providers Date of Admission: 04/14/23 Date of Discharge: 04/15/23 Primary Care Physician: Dr. Bethanie Desai MD Reason For Visit: FALL, ADULT FTT Diagnosis Discharge Diagnosis (1) Adult failure to thrive: Status: Acute Code(s): R62.7 - Adult failure to thrive Plan #Debility with failure to thrive * patient went for a pain shot in her right leg, and said subsequently started having numbness nad weakness in her RUE, resulting in mechanical falls * PT/OT on board. * fall precautions. * #Chronic spastic hereditary paraplegia * uses a walker at home. * on baclofen, gabapentin and tizanidine. * PT/OT on board. Fall precautions * #Hypertension: on losartan. IV hydralazine prn #Hyperlipidemia: on statin #Anxiety, depression and bipolar disorder * on duloxetine, trazodone and lamotrigine * #History of migraines: On gabapentin. #GERD: On PPI #Nicotine dependence: Counseled to quit. Nicotine patch as needed. DVT prophylaxis; lovenox # Medications at Discharge Home Medications baclofen 20 mg tablet 20 mg PO 4X/DAY 06/21/16 folic acid 1 mg tablet 2 mg PO DAILY 06/21/16 gabapentin 100 mg capsule 300 mg PO BID 06/21/16 lamotrigine 200 mg tablet (Lamictal) 200 mg PO QHS 06/21/16 omeprazole 20 mg capsule,delayed release 40 mg PO DAILY 06/21/16 simvastatin 40 mg tablet (Zocor) 20 mg PO DAILY 06/21/16 tizanidine 2 mg tablet 2 mg PO .COMPLEX 06/21/16 trazodone 150 mg tablet 300 mg PO BID 06/21/16 alendronate 70 mg tablet 70 mg PO .WEEKLY Tuesdays08/26/21 fexofenadine 60 mg tablet 60 mg PO DAILY 08/26/21 losartan 100 mg tablet 100 mg PO DAILY 11/04/21 meloxicam 7.5 mg tablet 7.5 mg PO DAILY 11/04/21 duloxetine 60 mg capsule,delayed release 60 mg PO DAILY 04/14/23 montelukast 10 mg tablet 10 mg PO DAILY 04/14/23 Hospital Course Operations None Procedures None Summary of Care Provided Minutes Spent on Discharge: 55 Hospital Course: Patient is a 58-year-old female with a past medical history as outlined which includes spastic paraplegia. She was admitted through the ED on with a complaint of numbness over anterior right thigh. She had had an injection to that region. Today on 04/14/2023 and subsequently had immediate onset of numbness. She also had increased weakness of the right lower extremity. She usually uses a rollator at home and said her weakness has been worsening. She was therefore admitted and managed for debility and weakness with failure to thrive. His symptoms were thought to be due to the injection that she had had for the spastic paraplegia and the pain in her right lower extremity. She worked with PT OT. She was deemed as being able to go home with home therapy. Patient was therefore discharged home on 04/15/2023. She is to follow-up with her primary care doctor within 1 to 2 weeks after follow-up with pain management as scheduled. Patient seen and examined prior to discharge. She was tearful and said her anxiety was acting up because she was in the hospital. She really wanted to leave the hospital because she felt that would help her mood and her symptoms. He had an uneventful night. Review of systems otherwise negative. Labs and vitals reviewed. e medication reviewed and reconciled. Physical Exam Const alert, oriented x3 and no apparent distress General Appearance: cooperative and comfortable HEENT normocephalic, head/scalp atraumatic, hearing grossly normal bilaterally, moist oral mucous membranes and oropharynx normal Mouth: oral and palatal mucosa normal Eyes PERRL, EOMs intact bilaterally and conjunctivae normal Neck no lymphadenopathy, supple and no JVD Lymph Lymphatic: no lymphadenopathy noted and no lymphedema noted Resp normal respiratory effort, normal air movement, no use of accessory muscles and clear to auscultation bilaterally Cardio regular rate, regular rhythm, S1 normal heart sound, S2 normal heart sound and no murmurs GI normal to inspection, nondistended, normoactive bowel sounds, soft to palpation, non-tender and non-distended Extremity normal to inspection, full ROM, normal capillary refill, no clubbing, cyanosis or edema and no calf tenderness Skin no rashes or lesions noted General Skin Exam: no breakdown Neuro oriented x3, CN's II-XII intact bilaterally, moves all extremities, no focal motor deficits, no sensory deficits noted and deep tendon reflexes 2+ bilaterally Sensorium / Orientation: awake and alert Motor Exam: general weakness Psych thought process normal Mood & Affect: anxious Weight / BMI Weight Weight: 155 lb 3.287 oz Body Mass Index (BMI) 28.8 ABG / Lab / Microbiology Data 04/15/23 06:31 04/15/23 06:31 Laboratory: Laboratory Results - last 24 hr 04/15/23 06:31: WBC 6.8, RBC 4.79, Hgb 14.7, Hct 44.0, MCV 91.9, MCH 30.7, MCHC 33.4, RDW Std Deviation 45.6 H, RDW Coeff of Kristi 13.5, Plt Count 169, MPV 11.9, Immature Gran % (Auto) 0.300, Neut % (Auto) 64.6, Lymph % (Auto) 24.2, Haralson % (Auto) 8.4, Eos % (Auto) 1.6, Baso % (Auto) 0.9, Absolute Neuts (auto) 4.4, Absolute Lymphs (auto) 1.64, Nucleated RBC % 0, Sodium 140, Potassium 3.8, Chloride 108 H, Carbon Dioxide 28.0, Anion Gap 4 L, BUN 12, Creatinine 0.76, Estim Creat Clear Calc 60.14, Est GFR (MDRD) Af Amer 100, Est GFR (MDRD) Non-Af 83, BUN/Creatinine Ratio 15.8, Glucose 99, Calcium 10.2 H D/C Instructions Discharge Diet: Low fat / Low cholesterol Discharge Activity: Return to Normal Activity Weight Bearing Status: Weight bearing as tolerated Call your doctor if you observe: Fever of 101 or Higher, Shortness of breath, Dizziness, Swelling in the ankles and Chest pain Meaningful Use Info Meaningful Use Diagnoses (Choose all that apply): None applicable Discharge Plan Admission Admit Date/Time: 04/14/23 02:03 Primary Reason for Your Visit: debility, failure to thrive Attending Provider: Kym Gupta Primary Care Provider: Bethanie Desai Consulting Providers: Sera Merino Instructions Patient Instructions: ED FALL-from [facility] Discharge Orders/Prescriptions Prescriptions: Continued lamotrigine [Lamictal] 200 MG tablet 200 mg PO QHS tizanidine 2 MG tablet 2 mg PO .COMPLEX Rx Instructions: 2 mg orally 2 mg in am, 1mg in afternoon, 1mg in evening, 2mg at bedtime; simvastatin [Zocor] 40 MG tablet 20 mg PO DAILY baclofen 20 MG tablet 20 mg PO 4X/DAY trazodone 150 MG tablet 300 mg PO BID omeprazole 20 MG capsule 40 mg PO DAILY folic acid 1 MG tablet 2 mg PO DAILY Patient Comments: TAKE 2 TABLET BY MOUTH ONCE DAILY gabapentin 100 MG capsule 300 mg PO BID Patient Comments: TAKE 2 CAPSULES TWICE A DAY fexofenadine 60 mg tablet 60 mg PO DAILY alendronate 70 mg tablet 70 mg PO .WEEKLY meloxicam 7.5 mg Tablet 7.5 mg PO DAILY losartan 100 mg Tablet 100 mg PO DAILY duloxetine 60 mg capsule,delayed release(DR/EC) 60 mg PO DAILY montelukast 10 mg tablet 10 mg PO DAILY Referrals / Follow Up: Bethanie Desai MD [Primary Care Provider] - Within 2 Weeks Disposition Disposition (needs filled in before D/C Order can be placed): Home Health Service Charges/Coding Visit Charges Inpatient E&M: 51761 Disch Hosp >30min
[2023-04-15 11:30] VITALS: BP 162/69; PULSE 65; RESP 16; TEMP 36.6; O2SAT 97
--- NOTE | 2023-04-17 14:17 | CASEMGMT ---
REYES AMARO NOTE: This RN PREM f/u today re: HHC's sent on Monday. No further [facility] agencies have responded via [employer] w/response. Call to N and spoke w/Linda who states they are unable to accept pt. REYES AMARO also spoke w/Terra @ [facility] and states they would be unable to do SOC til next week. Pt was discharged home w/script for OP therapy on Monday, as no [facility] agencies able to accept her. Pt was agreeable with the plan for OP therapy, so will continue w/this plan for OP therapy. Noah WALTER RN CM
== END 2023-04-15 10:40 | disposition home health service (06) ==
LOC: ED 04-14 02:02 → PCU 04-14 02:17
PROVIDERS: Admitting Provider Family Medicine; Emergency Provider Emergency Medicine; PCP Internal Medicine; Visit Provider Student in an Organized Health Care Education/Training Program
DX: R62.7 Adult failure to thrive (principal); G11.4 Hereditary spastic paraplegia; F31.9 Bipolar disorder, unspecified; R53.81 Other malaise; M79.604 Pain in right leg; E78.00 Pure hypercholesterolemia, unspecified; I10 Essential (primary) hypertension; M79.605 Pain in left leg; F41.9 Anxiety disorder, unspecified; F17.210 Nicotine dependence, cigarettes, uncomplicated; G43.709 Chronic migraine without aura, not intractable, without status migrainosus; M79.7 Fibromyalgia; R53.1 Weakness; K21.9 Gastro-esophageal reflux disease without esophagitis; R20.2 Paresthesia of skin; R20.0 Anesthesia of skin; Z79.899 Other long term (current) drug therapy; Z91.81 History of falling
CPT/HCPCS: 36415; 73502; 80048; 80053; 85025; 94668; 96372; 96374; 97162; 97166; 97802; 99221; 99285; 99406; A4216; G0378

== ENCOUNTER 2023-06-06 13:30 | Outpatient (RCR) | payer MEDICARE, MEDICAID, SELFPAY ==
--- NOTE | 2023-04-21 15:10 | HP.PTEVAL_ITS ---
Patient's Visit Information Visit Information Visit Information: RACHEAL ANN is a 58 year old F referred to Physical Therapy by Dr. Bethanie Desai MD with a diagnosis of chronic spastic hereditary paraplegia, R hip pain. Date of Evaluation: 04/21/23 Physical Therapist: Pernell Mchugh, DPT, OCS, CSCS Visit Plan Frequency: 2-3x /Week Duration: 4-6 Weeks Plan: 2-3x/week for 3-6 weeks for 1. PROM, manual therapy leg pull and R hip mobs for pain grade 1-2, progress to AROM hip and gait progression. 2. MH as needed, progression of HEP (given hip abd, add AROM today to get hip moving.) Subjective Subjective: Sees basali for pain and injections in LB. Pain r groin had for 2 weeks and then f/u and offered shot in hip but R thigh felt numb and pain still present in R hip. Lost balance that night and fell BW and hit head. Could not get up due to pain and numbness. Squad got her up and went to ER. X ray: hips and monitorred blood pressure. In hospital one day and sent home. Sent for outpatient PT. Been in PT for hip pain yrs ago. This latest incident was 04/13/23. Doing all right at home with wh walker whcih she has used long time. Hip still hurts R groin 6/10 at rest and walking, worse walking. Numbness is gone. Sleep is OK. Live alone, one story house, no steps. Basic DLs dressing , bathroom, shower I. Not employed.Disabled from genetic hereditary spastic paraplegia, since 2018 Hobbies: reading Pain R groin: Pain Intensity (Out of 10): 4 Pain Intensity Range: 6 Objective Objective: R hip Walks slowly with short steps adn somewhat antalgia on R leg but mod I back to PT room. Trasers chair with UE slow but I. painful to attempt transfer to bed with R LE lift, Min A. min a to sit up. Steps not attempted today. + R THU and FADDIR and grind at hip B LE very weak and patient hesitant to move r hip supine or sitting due to sharp pain anteriorly at groin. Sensation WNL in B LE to gross light touch. reflexes 3/3 with clonus as expected B achilles, 3/3 patella. Strength R ankle 3- all directions, knee flex/ext 3+, hip unable due to pain. L hip 3, L knee 3+, L ankle 3+. - slump, - SLR. Moderate tightness B HS. PROM to R hip is not tolerated well appearing more due to anxiety than increase in pain, better with education on the gentle nature of her movement. Unable to walk without wh walker but can stand gently without holding on for short duration. Pain is her main problem followed by anxiety of movement limiting mobility. Balance/Special Test Scores Lower Extremity Functional Score: 9 Goals Goal 1:: patient move R hip symmetrical with L without hesitation or pain Goal Time Frame: 4-6 Weeks Goal 2:: Patient subjective pain 80% better adn 1/10 at worst and comfortable at rest. Goal Time Frame: 4-6 Weeks Goal 3:: No sleep loss due to pain Goal Time Frame: 4-6 Weeks Goal 4:: I appropriate managemnt of R hip pain Goal 5:: LEFS 30 Goal Time Frame: 4-6 Weeks Rehabilitation Potential Physical Therapy Diagnosis: R hip pain limiting funciton and mobility and contributing to her weakness, likely degenerative in nature. Rehabilitation Potential: Questionable Anticipated Interventions Patient/Client Instruction: Educate patient on: Condition and Plan of Care For the Purpose of:: To decrease pain, To increase ROM, To improve nutrient delivery to tissue, To improve muscle performance and motor function, To increase tolerance to activity/condition/position, To improve ability of physical actions for home/community/work/leisure and To improve gait and locomotor functions Therapeutic Exercise to Include: Strength training, Postural training, Flexibilty training, Gait and locomotor training, Passive ROM and Active ROM For the Purpose of:: To decrease pain, To decrease swelling/inflammation, To increase ROM, To improve nutrient delivery to tissue, To improve muscle performance and motor function, To increase tolerance to activity/condi tion/position and To improve gait and locomotor functions Manual Therapy Techniques to Include: Mobilization, Passive ROM and Soft tissue mobilization For the Purpose of:: To decrease pain and To increase ROM Thermo therapy (hot pack): Yes For the Purpose of:: To decrease pain, To increase ROM and To improve nutrient delivery to tissue Text: Thank you for the opportunity to evaluate your patient. For Medicare and Medicare HMO plans, please review the plan of care and approve it. It will need to be FAXED BACK to us at [phone] for Medicare purposes. For Medicare only, by signing this I certify the plan of care. Please let me know if there are questions or concerns regarding this plan of care. Physician Signature: Date:
--- NOTE | 2023-06-06 13:57 | HP.PTDCSUM ---
Discharge Summary D/C summary: It has been my pleasure to treat RACHEAL ANN referred by Dr. Bethanie Desai MD, with the diagnosis of chronic spastic hereditary paraplegia, R hip pain for a total of 4 visit(s). Discharge Date: 06/06/23 Please see the following information for a summary of their discharge status. Subjective Subjective: Pain is much better and sleeping well, can do exercises at home adn wishes to be done. Pain R groin: Pain Intensity (Out of 10): 1 Overall Improvement % Improvement: 88 Objective Objective/Function: walking with wh walker and doing well. Pt able to utilize R LE to transition with cues today and it is not just a long for the ride. She wishes to be done with PT after today. Goals Goal 1:: patient move R hip symmetrical with L without hesitation or pain Goal Progress: Progressing Goal 2:: Patient subjective pain 80% better adn 1/10 at worst and comfortable at rest. Goal Progress: Progressing Goal 3:: No sleep loss due to pain Goal Progress: Goal Met Goal 4:: I appropriate managemnt of R hip pain Goal Progress: Goal Met Goal 5:: LEFS 30 Goal Progress: Goal Met Plan Plan: d/c D/C Information Discharge Comments: To continue via HEP as patient wishes. d/c sentence: If there are questions or concerns regarding this patient's physical therapy, please feel free to call me at [phone]. Thank you for the referral of this patient. Sincerely, Pernell Mchugh, DPT, OCS, CSCS Balance/Gait/Functional tests Balance/Special Test Scores Lower Extremity Functional Score: 34 Improvement % Improvement: 88
== END 2023-06-06 19:00 | disposition home or self-care (01) ==
LOC: PT 13:30
PROVIDERS: PCP Internal Medicine; Referring Provider Student in an Organized Health Care Education/Training Program; Visit Provider Internal Medicine
DX: G11.4 Hereditary spastic paraplegia (principal)
CPT/HCPCS: 97110; 97140; 97162